=== PATIENT | female | born 1950 | race Caucasian/White ===

== ENCOUNTER 2018-07-14 13:03 | Emergency (ER) | payer MEDICARE, OTHER ==
[~2018-07-14] VITALS: Ht 170.2 cm; Wt 79.4 kg
[~2018-07-14 13:03] MED LIST: ACETAMINOPHEN500 MG PO; ACYC200 PO; ACYC400 PO; AMOX500 PO; AMOX875 PO; ATEN100; CEPH500 PO; CIPR500 PO; CIPRSO; CODGUAEL PO; CYCL10 PO; Ciloxan5 ML LEFTEYE; Ciprodex Otic7.5 ML LEFTEAR; DULO30 PO; DULO60 PO; ESTRADIOL; FAMC500; GABA300 PO; HYDACE5 PO; HYDMOR2 PO; HYDPAM25 PO; IBUP800 PO; LEVFLO250 PO; LOSA50 PO; LOSARTAN POTAS100 MG PO; LOSARTAN POTASS50 MG PO; METH40; METH40 PO; METO10 PO; METO100ER PO; METO50ER PO; MULVITMINE PO; MUPI2TO TOP; NAPR500 PO; NAPR550 PO; NEOPOLHCSU OT; NITR100CA PO; Norco 10-325 T1 EACH PO; OMEP20ER; OMEP20ER PO; OXYC5; OXYC5 PO; PRED5; PROC10 PO; PROM25 PO; Phenergan25 M1 PO; RIBA200 PO; RXLORA1 PO; RXNAPNA550 PO; SOVALDI400 MG PO; SULTRIDS PO; TACR1; TACR1 PO; TACROLIMUS0.5 MG PO; TACROLIMUS1 MG PO; TRAM50 PO; TRIAOI; Verotin-Gr Cap1 EACH PO; Vistaril25 MG PO; [UNRECOGNIZED DRUG - REMARK]
[2018-07-14 14:52] LABS: BASOPHILS ABSOLUTE AUTO 0.04 K/mm3 (0.00-0.23); BASOPHILS PERCENT AUTO 1 % (0-2); EOSINOPHILS ABSOLUTE AUTO 0.15 K/mm3 (0.00-0.68); EOSINOPHILS PERCENT AUTO 2 % (0-6); Hematocrit 44.8 % (33.0-51.0); Hemoglobin 14.8 g/dL (11.5-16.0); IMMATURE GRAN ABSOLUTE AUTO 0.03 K/mm3 (0.00-0.10); IMMATURE GRAN PERCENT AUTO 0 % (0-1); LYMPHOCYTES PERCENT AUTO 25 % (21-46); MONOCYTES ABSOLUTE AUTO 0.72 K/mm3 (0.16-1.47); MONOCYTES PERCENT AUTO 9 % (4-13); Mean Corpuscular HGB 28.2 pg (26.0-34.0); Mean Corpuscular Volume 86 fL (80-100); Mean Platelet Volume 10.7 fL (9.1-12.4); NEUTROPHILS ABSOLUTE AUTO 5.27 K/mm3 (1.96-9.15); NEUTROPHILS PERCENT AUTO 63 % (41-73); Platelet Count 244 K/mm3 (150-400); RDW Coefficient Variation 12.5 % (11.7-14.2); RDW Standard Deviation 38.9 fL (35.1-46.3); Red Blood Cell Count 5.24 M/mm3 (3.80-5.20); White Blood Cell Count 8.31 K/mm3 (4.00-11.30)
[2018-07-14 15:11] LABS: Albumin, Blood 3.5 g/dL (3.4-5.0); Albumin/Globulin Ratio 0.8 (0.8-1.8); Bilirubin, Total 0.7 mg/dL (0.1-1.0); Bun/Creatinine Ratio 14.8 (12.0-20.0); Calcium, Blood 9.1 mg/dL (8.5-10.1); Creatinine, Blood 1.69 mg/dL (0.40-1.00); Globulin, Blood 4.6 g/dL (2.2-4.0); Potassium, Blood 3.8 mmol/L (3.5-5.5); Total Protein, Blood 8.1 g/dL (6.4-8.2)
[2018-07-14] MEDS ORDERED: ACYC400 PO (15:11)
[2018-07-14 18:17] LABS: Source, Urine Clean Catch
[2018-07-14 18:23] LABS: Appearance, Urine Clear (Clear); Bilirubin, Urine Neg (Neg); Blood, Urine Neg (Neg); Color, Urine Yellow (P-Yellow); Glucose Qualitative, Urine Neg (Neg); Ketones, Urine 1+ (Neg); Leukocyte Esterase, Urine 1+ (Neg); Nitrite, Urine Neg (Neg); Protein, Urine 1+ (Neg); Urobilinogen, Urine NORM (Normal)
[2018-07-14 18:42] LABS: Bacteria Rare /hpf; Red Blood Cells, Urine Not Seen /hpf (0-2); Squamous Epithelial Cells Mod /hpf (Few)
== END 2018-07-14 20:06 | disposition home or self-care (01) ==
LOC: ER 13:03
PROVIDERS: Physician Assistant
DX: I12.9 Hypertensive chronic kidney disease with stage 1 through stage 4 chronic kidney disease, or unspecified chronic kidney disease (principal); E11.22 Type 2 diabetes mellitus with diabetic chronic kidney disease; N18.9 Chronic kidney disease, unspecified; N17.9 Acute kidney failure, unspecified; Z88.8 Allergy status to other drugs, medicaments and biological substances; Z91.018 Allergy to other foods; Z88.1 Allergy status to other antibiotic agents; Z79.899 Other long term (current) drug therapy; Z87.891 Personal history of nicotine dependence
CPT/HCPCS: 36415; 71046; 74176; 80053; 81001; 83690; 85025; 93005; 93010; 96361; 96374; 96376; 99284-25; J3010; J7030

== ENCOUNTER 2018-11-17 12:49 | Emergency (ER) | payer MEDICARE ==
[~2018-11-17] VITALS: Ht 170.2 cm; Wt 79.4 kg
== END 2018-11-17 13:57 | disposition home or self-care (01) ==
LOC: ER 12:49
DX: H60.91 Unspecified otitis externa, right ear (principal); Z88.8 Allergy status to other drugs, medicaments and biological substances; Z88.1 Allergy status to other antibiotic agents; Z79.899 Other long term (current) drug therapy; I12.9 Hypertensive chronic kidney disease with stage 1 through stage 4 chronic kidney disease, or unspecified chronic kidney disease; E11.22 Type 2 diabetes mellitus with diabetic chronic kidney disease; N18.9 Chronic kidney disease, unspecified; Z87.891 Personal history of nicotine dependence
CPT/HCPCS: 99282

== ENCOUNTER 2019-03-09 23:14 | Emergency (ER) | payer MEDICARE ==
[~2019-03-09] VITALS: Ht 170.2 cm; Wt 77.1 kg
[2019-03-10] MEDS ORDERED: BENADRYL25 MG PO (00:32)
[2019-03-10] MEDS ORDERED: ERYT1OIN RIGHTEYE (00:52)
[2019-03-10] MEDS ORDERED: Cleocin HCl300 MG PO (00:52)
== END 2019-03-10 01:25 | disposition home or self-care (01) ==
LOC: ER 23:14
DX: H04.301 Unspecified dacryocystitis of right lacrimal passage (principal); Z88.8 Allergy status to other drugs, medicaments and biological substances; Z88.1 Allergy status to other antibiotic agents; Z79.899 Other long term (current) drug therapy; I12.9 Hypertensive chronic kidney disease with stage 1 through stage 4 chronic kidney disease, or unspecified chronic kidney disease; E11.22 Type 2 diabetes mellitus with diabetic chronic kidney disease; N18.9 Chronic kidney disease, unspecified; Z87.891 Personal history of nicotine dependence
CPT/HCPCS: 99283

== ENCOUNTER 2020-04-08 12:38 | Emergency (ER) | payer MEDICARE ==
[~2020-04-08] VITALS: Ht 170.2 cm; Wt 77.1 kg
[~2020-04-08 12:38] MED LIST changes: +BENADRYL25 MG PO; +Cleocin HCl300 MG PO; +ERYT1OIN RIGHTEYE
[2020-04-08] MEDS ORDERED: NEOPOLHCSU RIGHTEAR (13:25)
== END 2020-04-08 13:36 | disposition home or self-care (01) ==
LOC: ER 12:38
DX: H60.91 Unspecified otitis externa, right ear (principal); I12.9 Hypertensive chronic kidney disease with stage 1 through stage 4 chronic kidney disease, or unspecified chronic kidney disease; E11.22 Type 2 diabetes mellitus with diabetic chronic kidney disease; N18.9 Chronic kidney disease, unspecified; Z87.891 Personal history of nicotine dependence; Z79.899 Other long term (current) drug therapy
CPT/HCPCS: 99282

== ENCOUNTER 2024-09-25 19:22 | Inpatient (IN) | payer MEDICARE, OTHER ==
[~2024-09-25] VITALS: Ht 170.2 cm; Wt 73.3 kg
[~2024-09-25 19:22] MED LIST changes: +DIPH50 PO; +FAMO20 PO; +GABA100 PO; +GLIP2.5ER; +MORPHINE SULFAT15 M1 PO; +MULTIPLE VITAM1 EACH PO; +NEOPOLHCSU RIGHTEAR; +Propofol 10mg/ml 20 ml Vial (Procedural) IV ONE; +Ropinirole HCl0.5 MG PO; +ZYRTEC10 M1 PO
[2024-09-25 19:55] LABS: BASOPHILS ABSOLUTE AUTO 0.02 K/mm3 (0.00-0.23); BASOPHILS PERCENT AUTO 0 % (0-2); EOSINOPHILS ABSOLUTE AUTO 0.06 K/mm3 (0.00-0.68); EOSINOPHILS PERCENT AUTO 1 % (0-6); Hematocrit 37.8 % (33.0-51.0); Hemoglobin 12.8 g/dL (11.5-16.0); IMMATURE GRAN ABSOLUTE AUTO 0.01 K/mm3 (0.00-0.10); IMMATURE GRAN PERCENT AUTO 0 % (0-1); LYMPHOCYTES ABSOLUTE AUTO 0.43 K/mm3 (0.84-5.20); LYMPHOCYTES PERCENT AUTO 8 % (21-46); MONOCYTES ABSOLUTE AUTO 0.08 K/mm3 (0.16-1.47); MONOCYTES PERCENT AUTO 1 % (4-13); Mean Corpuscular HGB 27.6 pg (26.0-34.0); Mean Corpuscular HGB Conc 33.9 g/dL (31.5-36.5); Mean Corpuscular Volume 82 fL (80-100); Mean Platelet Volume 9.5 fL (9.1-12.4); NEUTROPHILS ABSOLUTE AUTO 4.99 K/mm3 (1.96-9.15); NEUTROPHILS PERCENT AUTO 89 % (41-73); Platelet Count 201 K/mm3 (150-400); RDW Coefficient Variation 12.6 % (11.7-14.2); RDW Standard Deviation 37.4 fL (35.1-46.3); Red Blood Cell Count 4.64 M/mm3 (3.80-5.20); White Blood Cell Count 5.59 K/mm3 (4.00-11.30)
[2024-09-25 20:05] LABS: Source, Urine Clean Catch
[2024-09-25 20:08] LABS: Appearance, Urine Clear (Clear); Bilirubin, Urine Neg (Neg); Blood, Urine Neg (Neg); Color, Urine Yellow (P-Yellow); Glucose Qualitative, Urine Neg (Neg); Ketones, Urine Neg (Neg); Leukocyte Esterase, Urine 1+ (Neg); Nitrite, Urine Neg (Neg); Protein, Urine Neg (Neg); Urobilinogen, Urine NORM (Normal)
[2024-09-25 20:16] LABS: Bacteria Few /hpf; Red Blood Cells, Urine 0-2 /hpf (0-2); Squamous Epithelial Cells Few /hpf (Few)
[2024-09-25 20:16] LABS: Albumin, Blood 3.3 g/dL (3.4-5.0); Albumin/Globulin Ratio 0.9 (0.8-1.8); Bilirubin, Total 0.5 mg/dL (0.1-1.0); Bun/Creatinine Ratio 19.5 (12.0-20.0); Calcium, Blood 8.7 mg/dL (8.5-10.1); Creatinine, Blood 1.23 mg/dL (0.40-1.00); Globulin, Blood 3.7 g/dL (2.2-4.0); Potassium, Blood 4.8 mmol/L (3.5-5.5)
[2024-09-25 20:30] LABS: Influenza A, PCR NEGATIVE (NEGATIVE); Influenza B, PCR NEGATIVE (NEGATIVE); Resp Syncytial Virus, PCR NEGATIVE (NEGATIVE); SARS-Cov-2 (COVID-19) PCR, MMC NEGATIVE (NEGATIVE)
[2024-09-25 21:39] LABS: U Amphetamine Screen Not Detected; U Barbituate Screen Not Detected; U Benzodiazapine Screen Not Detected; U Buprenorphine Screen Not Detected; U Cannabinoids Screen Not Detected; U Cocaine Screen Not Detected; U Methadone Screen Not Detected; U Methamphetamine Screen Not Detected; U Opiates Screen DETECTED; U Oxycodone Screen Not Detected; U Phencyclidine Screen Not Detected
[2024-09-25] MEDS ORDERED: FLU VACC TS2024-25(6MOS UP)/PF 45 MCG/0.5 ML SYRINGE IM ONE (22:35)
[2024-09-25] MEDS ORDERED: Metoclopramide HCl 5MG / ML 2ML Vial IV ONE (23:50)
[2024-09-26] VITALS (34 sets, daily range): BP systolic 85–121; BP diastolic 43–72
[2024-09-26] MEDS ORDERED: Lactated Ringer's 1,000 ML IV ONE (00:46)
[2024-09-26] MEDS ORDERED: Lactated Ringer's 500 ML IV ONE ×4 (00:50→06:15)
[2024-09-26] MEDS ORDERED: NS 1,000 ML IV SCH (01:44)
[2024-09-26] MEDS ORDERED: Lactated Ringer's 1,000 ML IV SCH (02:00)
[2024-09-26] MEDS ORDERED: NS 1,000 ML IV ONE (02:42)
[2024-09-26] MEDS ORDERED: CefTRIAXone Sodium 1,000 MG in NS 100 ML IV SCH (05:04)
[2024-09-26 07:04] LABS: BASOPHILS ABSOLUTE AUTO 0.02 K/mm3 (0.00-0.23); BASOPHILS PERCENT AUTO 0 % (0-2); EOSINOPHILS ABSOLUTE AUTO 0.06 K/mm3 (0.00-0.68); EOSINOPHILS PERCENT AUTO 1 % (0-6); Hematocrit 31.4 % (33.0-51.0); Hemoglobin 10.7 g/dL (11.5-16.0); IMMATURE GRAN ABSOLUTE AUTO 0.04 K/mm3 (0.00-0.10); IMMATURE GRAN PERCENT AUTO 0 % (0-1); LYMPHOCYTES ABSOLUTE AUTO 0.76 K/mm3 (0.84-5.20); LYMPHOCYTES PERCENT AUTO 7 % (21-46); MONOCYTES ABSOLUTE AUTO 0.82 K/mm3 (0.16-1.47); MONOCYTES PERCENT AUTO 7 % (4-13); Mean Corpuscular HGB 28.2 pg (26.0-34.0); Mean Corpuscular HGB Conc 34.1 g/dL (31.5-36.5); Mean Corpuscular Volume 83 fL (80-100); Mean Platelet Volume 9.9 fL (9.1-12.4); NEUTROPHILS ABSOLUTE AUTO 9.76 K/mm3 (1.96-9.15); NEUTROPHILS PERCENT AUTO 85 % (41-73); Platelet Count 182 K/mm3 (150-400); RDW Coefficient Variation 12.8 % (11.7-14.2); RDW Standard Deviation 38.5 fL (35.1-46.3); White Blood Cell Count 11.46 K/mm3 (4.00-11.30)
[2024-09-26] MEDS ORDERED: Insulin Human Lispro 100 Units/ML 3ML Syringe SC SCH (07:30)
[2024-09-26 07:44] LABS: Bun/Creatinine Ratio 16.6 (12.0-20.0); Creatinine, Blood 1.57 mg/dL (0.40-1.00)
[2024-09-26] MEDS ORDERED: Morphine Sulfate IR 15 MG Tab PO PRN (08:25)
[2024-09-26] MEDS ORDERED: Lactobacil 2-S.Thermo-Bifido 1 1 Cap PO SCH (09:00)
[2024-09-26] MEDS ORDERED: Vancomycin HCL 1,750 MG in NS 500 ML IV ONE (13:20)
--- NOTE | 2024-09-26 20:01 | NUR ---
ASSUMPTION OF CARE: PT ALERT AND ORIENTED X4. ANSWERS ASSESSMENT QUESTION APPROPRIATELY, USES CALL LIGHT APPROPRIATELY. PT HR 90S. SBP IN 100S. MAPS >65. DENIES CHEST PAIN OR SOB. LUNGS CLEAR T/O. PT ON RA, SATS 99%. TEMP 99.0, STATES SHE FEELS WARM. HELPED PT GET SOME BLANKETS OFF OF HER. PT EATING PUDDING SNACK. STATES SHE ATE LUNCH TODAY AND TOLERATED IT WELL. HELPED PT TO BEDSIDE TOILET DURING ASSESSMENT. VOIDED ABOUT 200ML, YELLOW URINE. SHE IS ABLE TO MOVE AROUND ROOM INDEPENDENTLY. REPORTS CHRONIC BACK PAIN TO BE AT A 6 OUT OF 10. STATES SHE NORMALLY SITS AT A 5/10 AND FEELS IT'S BEEN MANAGED WELL DURING HER STAY. REPOSITIONING HELPS SHE IS NOT USED TO LYING FOR SO LONG. PLAN TO TRANSFER PT TO MEDICAL FLOOR THIS SHIFT. THIS RN TO CONTINUE TO MONITOR AND REPORT TO MED FLOOR RN.
--- NOTE | 2024-09-26 21:49 | NUR ---
PT TRANSPORTED VIA WC TO MEDICAL FLOOR BY IVANNA TRUCK HEADLIGHT ASSEMBLER. THIS RN REPORTED TO [facility] LOBSTER CATCHER PRIOR TO PTS DEPARTURE.
--- NOTE | 2024-09-26 22:00 | NUR ---
REPORT RECEIVED FROM DAWIT ALVARES. PT TRANSFERRED FROM ICU TO 358. TOA: 2150 VIA W/C. SBA TRANSFER TO BED. VSS. PT A&O X4. NO ACUTE DISTRESS. NS INFUSING AT 125ML / HR PER EMAR ORDER. PT ORIENTED TO ROOM AND CALL SYSTEM. BED IN LOWEST POSTION. CARES CONTINUE ORDERED.
[2024-09-27] VITALS (11 sets, daily range): BP systolic 93–156; BP diastolic 47–82
[2024-09-27 00:15] LABS: U Amphetamine Screen Not Detected; U Barbituate Screen Not Detected; U Benzodiazapine Screen Not Detected; U Buprenorphine Screen Not Detected; U Cannabinoids Screen Not Detected; U Cocaine Screen Not Detected; U Methadone Screen Not Detected; U Methamphetamine Screen Not Detected; U Opiates Screen DETECTED; U Oxycodone Screen Not Detected; U Phencyclidine Screen Not Detected
--- NOTE | 2024-09-27 05:00 | NUR ---
SHIFT SUMMARY: PT A&O X4, MAKES NEEDS KNOWN TO STAFF. USES CALL LIGHT APPROPRIATELY. MEDICATED X1 PER EMAR ORDERS FOR BACK AND NECK PAIN; EFFECTIVE. NS INFUSING AT 125ML /HR PER ORDER. PT OBSERVED BY THIS NURSE AMBULATING TO RESTROOM AND MANAGING LINES WITHOUT C/O WEAKNESS OR OBSERVED DIFFICULTY. NO ACUTE EVENTS. BED IN LOWEST POSITION. CALL LIGHT IN REACH. CARES CONTINUE ORDERED.
[2024-09-27 06:47] LABS: BASOPHILS ABSOLUTE AUTO 0.01 K/mm3 (0.00-0.23); BASOPHILS PERCENT AUTO 0 % (0-2); EOSINOPHILS ABSOLUTE AUTO 0.13 K/mm3 (0.00-0.68); EOSINOPHILS PERCENT AUTO 2 % (0-6); Hematocrit 28.2 % (33.0-51.0); Hemoglobin 9.5 g/dL (11.5-16.0); IMMATURE GRAN ABSOLUTE AUTO 0.03 K/mm3 (0.00-0.10); IMMATURE GRAN PERCENT AUTO 1 % (0-1); LYMPHOCYTES ABSOLUTE AUTO 0.86 K/mm3 (0.84-5.20); LYMPHOCYTES PERCENT AUTO 16 % (21-46); MONOCYTES ABSOLUTE AUTO 0.47 K/mm3 (0.16-1.47); MONOCYTES PERCENT AUTO 9 % (4-13); Mean Corpuscular HGB 27.9 pg (26.0-34.0); Mean Corpuscular HGB Conc 33.7 g/dL (31.5-36.5); Mean Corpuscular Volume 83 fL (80-100); Mean Platelet Volume 10.1 fL (9.1-12.4); NEUTROPHILS ABSOLUTE AUTO 3.83 K/mm3 (1.96-9.15); NEUTROPHILS PERCENT AUTO 72 % (41-73); Platelet Count 139 K/mm3 (150-400); RDW Standard Deviation 39.3 fL (35.1-46.3); White Blood Cell Count 5.33 K/mm3 (4.00-11.30)
[2024-09-27 06:59] LABS: Anion Gap 10 mmol/L (3-11); Blood Urea Nitrogen 16 mg/dL (8-24); Bun/Creatinine Ratio 13.2 (12.0-20.0); CO2, Blood 23 mmol/L (21-32); Calcium, Blood 7.7 mg/dL (8.5-10.1); Chloride, Blood 110 mmol/L (98-108); Creatinine, Blood 1.21 mg/dL (0.40-1.00); Glomerular Filtration Rate 47 (60-); Glucose, Blood 122 mg/dL (70-99); Potassium, Blood 4.3 mmol/L (3.5-5.5); Sodium, Blood 139 mmol/L (136-145); Vancomycin, Random 16.3 ug/mL
[2024-09-27] MEDS ORDERED: Acetaminophen 325 MG TABLET PO PRN (07:40)
[2024-09-27] MEDS ORDERED: Ondansetron HCl 2 MG / ML 2ML Vial IV PRN (08:45)
[2024-09-27] MEDS ORDERED: Vancomycin HCL 1,250 MG in NS 250 ML IV SCH (09:00)
[2024-09-27] MEDS ORDERED: NS 1,000 ML IV ONE (09:30)
[2024-09-27] MEDS ORDERED: Benzocaine Oral Spray 0.5ML UD ONE (09:31)
--- NOTE | 2024-09-27 10:00 | NUR ---
[facility]. Anesthesia to bedside. Consents signed.
--- NOTE | 2024-09-27 10:30 | NUR ---
1010 time out performed 1011 meds given by anesthesia 1012 Probe time 1026 End ELSIE time 1029 Anesthesia end time, Pt sleeping wakes up to verbal stimuli. VSS. Spontaneous RR. 1031 Pt awake and walking. VSS. 350cc fluids given.
--- NOTE | 2024-09-27 10:50 | NUR ---
Pt fully recovered. Pt transfers to wheelchair. tele in place. pt taken back to 358 and report given to nurse.
[2024-09-27] MEDS ORDERED: Cefepime HCl 2,000 MG in NS 100 ML IV SCH (11:00)
[2024-09-27] MEDS ORDERED: CefTRIAXone Sodium 2,000 MG in NS 100 ML IV SCH (11:00)
--- NOTE | 2024-09-27 12:02 | NUR ---
"Spiritual Care Visit | Pt. Request Pt. is awake in bed and welcomed my visit. Pt. is very pleasant, and verbalized her great masoud in the midst of her current affliction. Facilitated a review of the roots of this masoud. Pt. shared some tragedy in her families past and how God faithfully cared for them over time. Considered matters of masoud and her local mu-ism in [place]. Pt. displays evidence of a deep personal connection with God. Prayed with the Pt. Pt. verbalized gratitude of rthe psiritual care visit and welcomed this radio host to return."
--- NOTE | 2024-09-27 12:50 | NUR ---
9560- THIS RN CALLED PT'S LUMBER MOVER AT [facility]-DR. PFEIFFER ON THE PROVIDER TO PROVIDER LINE AT . THIS RN GAVE THE REQUESTED PT INFORMATION AND ASKED A QUESTION REGARDING WHEN/IF TO RESTART [facility]CROLIM[facility]. THIS RN GAVE DR. EVANS'S PHONE NUMBER FOR A CALL BACK FOR MD TO MD COMMUNICATION. RN CALLED DR. EVANS TO UPDATE HER AND MD ASKED TO CALL BACK RN.
--- NOTE | 2024-09-27 19:28 | NUR ---
SUMMARY- PT AAOX4. CALM AND COOPERATIVE. PAIN WELL CONTROLLED WITH EMAR PAIN MEDS. IND IN ROOM/HALLS. ON RA. NO ACUTE EVENTS THIS SHIFT.
[2024-09-27] MEDS ORDERED: Enoxaparin 40 MG/0.4 ML SYR SC SCH (20:00)
[2024-09-28 00:32] VITALS: BP 123/65
[2024-09-28 04:51] VITALS: BP 128/68
[2024-09-28 05:43] LABS: BASOPHILS ABSOLUTE AUTO 0.02 K/mm3 (0.00-0.23); BASOPHILS PERCENT AUTO 1 % (0-2); EOSINOPHILS ABSOLUTE AUTO 0.17 K/mm3 (0.00-0.68); EOSINOPHILS PERCENT AUTO 4 % (0-6); Hematocrit 27.7 % (33.0-51.0); Hemoglobin 9.5 g/dL (11.5-16.0); IMMATURE GRAN ABSOLUTE AUTO 0.02 K/mm3 (0.00-0.10); IMMATURE GRAN PERCENT AUTO 1 % (0-1); LYMPHOCYTES ABSOLUTE AUTO 0.72 K/mm3 (0.84-5.20); LYMPHOCYTES PERCENT AUTO 18 % (21-46); MONOCYTES ABSOLUTE AUTO 0.36 K/mm3 (0.16-1.47); MONOCYTES PERCENT AUTO 9 % (4-13); Mean Corpuscular HGB 28.4 pg (26.0-34.0); Mean Corpuscular HGB Conc 34.3 g/dL (31.5-36.5); Mean Corpuscular Volume 83 fL (80-100); Mean Platelet Volume 10.2 fL (9.1-12.4); NEUTROPHILS ABSOLUTE AUTO 2.69 K/mm3 (1.96-9.15); NEUTROPHILS PERCENT AUTO 68 % (41-73); Platelet Count 139 K/mm3 (150-400); RDW Standard Deviation 39.2 fL (35.1-46.3); Red Blood Cell Count 3.35 M/mm3 (3.80-5.20); White Blood Cell Count 3.98 K/mm3 (4.00-11.30)
--- NOTE | 2024-09-28 06:09 | NUR ---
SHIFT SUMMARY PATIENT HAS BEEN SLEEPING INTERMITTANTLY THROUGHOUT THE NIGHT. SHE HAS BEEN MEDICATED X2 ON THIS SHIFT FOR PAIN WITH PO MORPHINE. SHE IS COMPLAINING OF BACK PAIN. VITAL SIGNS HAVE BEEN STABLE. PATIENT IS ORIENTED X4. SHE HAS HER CALL LIGHT WITHIN REACH. SAFETY PRECAUTIONS ARE BEING MAINTAINED.
[2024-09-28 06:11] LABS: Bun/Creatinine Ratio 12.2 (12.0-20.0); Calcium, Blood 7.8 mg/dL (8.5-10.1); Creatinine, Blood 1.15 mg/dL (0.40-1.00); Potassium, Blood 4.4 mmol/L (3.5-5.5)
[2024-09-28 07:28] VITALS: BP 124/73
[2024-09-28] MEDS ORDERED: Docusate Sodium 100 MG Cap PO SCH (09:00)
[2024-09-28 11:38] VITALS: BP 140/79
[2024-09-28] MEDS ORDERED: Melatonin 5 MG Tablet PO PRN (12:20)
--- NOTE | 2024-09-28 14:43 | NUR ---
PHYSICIAN CONTACT DR. JOHN NOTIFIED THAT PT HAS MRI SCHEDULED FOR 1500 AND IS CLAUSTERPHOBIC. STATED HE WILL PLACE AN ORDER TO HELP WITH THIS.
[2024-09-28 14:45] LABS: Albumin, Blood 2.8 g/dL (3.4-5.0); Albumin/Globulin Ratio 0.8 (0.8-1.8); Bilirubin, Direct 0.2 mg/dL (0.0-0.3); Bilirubin, Indirect 0.2 mg/dL (0.1-0.7); Bilirubin, Total 0.4 mg/dL (0.1-1.0); Globulin, Blood 3.6 g/dL (2.2-4.0); Total Protein, Blood 6.4 g/dL (6.4-8.2)
[2024-09-28] MEDS ORDERED: LORazepam 2 MG/ML 1ML Injection IV PRN (14:45)
--- NOTE | 2024-09-28 15:17 | NUR ---
Pt. is awake in bed and welcomed my visit. Pt. verbalized that she was going to be taken for and MRI soon, so I prayed with Pt. The Pts. wheelchair for he MRI arrived. Pt. verbalized gratitude for the spiritual care visit.
[2024-09-28 16:03] VITALS: BP 130/63
--- NOTE | 2024-09-28 18:07 | NUR ---
SUMMARY- AAOX4. ON RA. IND IN ROOM. PAIN WELL CONTROLLED WITH EMAR MEDS. NO ACUTE EVENTS THIS SHIFT.
[2024-09-28] MEDS ORDERED: Enoxaparin 40 MG/0.4 ML SYR SC SCH (19:00)
[2024-09-28] MEDS ORDERED: NS 250 ML IV PRN (19:45)
[2024-09-28 20:05] VITALS: BP 140/71
[2024-09-28] MEDS ORDERED: CefTRIAXone Sodium 2,000 MG in NS 100 ML IV SCH (21:00)
[2024-09-29 00:06] VITALS: BP 120/61
--- NOTE | 2024-09-29 04:17 | NUR ---
SHIFT SUMMARY PATIENT HAD NO ACUTE CHANGES. ALERT ORIENTED AND INDEPENDENT IN ROOM. DENIES CHEST PAIN, SOB, AND N/V. VSS/AFEBRILE. TELE MONITOR NSR 72. CBG 102. POWERGLIDE RU ARM INTACT. IV ABX INFUSED. MELATONIN 5 MG GIVEN FOR INSOMNIA. CALL LIGHT IN REACH. BED IN LOWEST POSITION. WILL CONTINUE TO MONITOR UNTIL DAY SHIFT NURSE ASSUMES CARE.
[2024-09-29 04:23] VITALS: BP 129/72
--- NOTE | 2024-09-29 04:41 | NUR ---
TELE MONITOR REPORTS 3 SECOND 2ND DEGREE HB AND BACK TO NSR 65. PATIENT ASYMPTOMATIC RESTING IN BED. DENIES CHEST PAIN. WCTM.
[2024-09-29 04:59] LABS: BASOPHILS ABSOLUTE AUTO 0.02 K/mm3 (0.00-0.23); BASOPHILS PERCENT AUTO 1 % (0-2); EOSINOPHILS ABSOLUTE AUTO 0.21 K/mm3 (0.00-0.68); EOSINOPHILS PERCENT AUTO 7 % (0-6); Hematocrit 28.5 % (33.0-51.0); Hemoglobin 9.7 g/dL (11.5-16.0); IMMATURE GRAN ABSOLUTE AUTO 0.02 K/mm3 (0.00-0.10); IMMATURE GRAN PERCENT AUTO 1 % (0-1); LYMPHOCYTES ABSOLUTE AUTO 0.88 K/mm3 (0.84-5.20); LYMPHOCYTES PERCENT AUTO 28 % (21-46); MONOCYTES ABSOLUTE AUTO 0.32 K/mm3 (0.16-1.47); MONOCYTES PERCENT AUTO 10 % (4-13); Mean Corpuscular HGB 27.9 pg (26.0-34.0); Mean Corpuscular Volume 82 fL (80-100); Mean Platelet Volume 10.4 fL (9.1-12.4); NEUTROPHILS ABSOLUTE AUTO 1.74 K/mm3 (1.96-9.15); NEUTROPHILS PERCENT AUTO 55 % (41-73); Platelet Count 158 K/mm3 (150-400); RDW Coefficient Variation 12.9 % (11.7-14.2); RDW Standard Deviation 38.5 fL (35.1-46.3); Red Blood Cell Count 3.48 M/mm3 (3.80-5.20); White Blood Cell Count 3.19 K/mm3 (4.00-11.30)
[2024-09-29 05:23] LABS: Albumin, Blood 2.4 g/dL (3.4-5.0); Albumin/Globulin Ratio 0.7 (0.8-1.8); Bilirubin, Total 0.2 mg/dL (0.1-1.0); Bun/Creatinine Ratio 10.7 (12.0-20.0); Calcium, Blood 8.2 mg/dL (8.5-10.1); Creatinine, Blood 1.12 mg/dL (0.40-1.00); Globulin, Blood 3.3 g/dL (2.2-4.0); Total Protein, Blood 5.7 g/dL (6.4-8.2)
[2024-09-29 07:42] VITALS: BP 123/67
[2024-09-29 11:56] VITALS: BP 132/74
[2024-09-29 16:39] VITALS: BP 147/87
--- NOTE | 2024-09-29 18:18 | NUR ---
SHIFT SUMMARY ANDRE HAD 1 EPISODE OF 2ND DEGREE BLOCK FOR 2 BEATS AND RETURNED TO SINUS 80S, DR JOYCE NOTIFIED THIS AFTERNOON OF EVENT, PATIENT ASYMPTOMATIC. SHE IS MEDICATED FOR PAIN PER EMAR WITH GOOD RELIEF. AFTER THIS, PATIENT TOOK A NAP AND THEN IS UP WALKING HALLS WITH GUILLE MARCUS. SHE DENIES ANY ISSUES AT THIS TIME.BED IN LOW POSITION, CALL LIGHT IN REACH. SHE IS ABLE TO MAKE NEEDS KNOWN. WILL CONTINUE TO MONITOR.
[2024-09-29 19:30] VITALS: BP 140/73
[2024-09-30 00:17] VITALS: BP 125/66
--- NOTE | 2024-09-30 04:05 | NUR ---
SHIFT SUMMARY PATIENT NAUSEOUS X ONE AND IV ZOFRAN GIVEN WITH GOOD EFFECT. AXOX 4 AND INDEPENDENT. DENIES CHEST PAIN AND SOB. VSS/AFEBRILE. POWERGLIDE RU ARM INTACT. TELE MONITOR NSR 75. CALL LIGHT IN REACH. BED IN LOWEST POSITION. WILL CONTINUE TO MONITOR UNTIL DAY SHIFT NURSE ASSUMES CARE.
[2024-09-30 05:23] VITALS: BP 123/62
[2024-09-30 05:48] LABS: BASOPHILS ABSOLUTE AUTO 0.03 K/mm3 (0.00-0.23); BASOPHILS PERCENT AUTO 1 % (0-2); EOSINOPHILS ABSOLUTE AUTO 0.21 K/mm3 (0.00-0.68); EOSINOPHILS PERCENT AUTO 5 % (0-6); Hematocrit 28.2 % (33.0-51.0); Hemoglobin 9.6 g/dL (11.5-16.0); IMMATURE GRAN ABSOLUTE AUTO 0.04 K/mm3 (0.00-0.10); IMMATURE GRAN PERCENT AUTO 1 % (0-1); LYMPHOCYTES ABSOLUTE AUTO 1.07 K/mm3 (0.84-5.20); LYMPHOCYTES PERCENT AUTO 28 % (21-46); MONOCYTES ABSOLUTE AUTO 0.44 K/mm3 (0.16-1.47); MONOCYTES PERCENT AUTO 11 % (4-13); Mean Corpuscular HGB 28.1 pg (26.0-34.0); Mean Corpuscular Volume 83 fL (80-100); Mean Platelet Volume 10.7 fL (9.1-12.4); NEUTROPHILS ABSOLUTE AUTO 2.08 K/mm3 (1.96-9.15); NEUTROPHILS PERCENT AUTO 54 % (41-73); Platelet Count 188 K/mm3 (150-400); RDW Coefficient Variation 12.9 % (11.7-14.2); Red Blood Cell Count 3.42 M/mm3 (3.80-5.20); White Blood Cell Count 3.87 K/mm3 (4.00-11.30)
[2024-09-30 06:14] LABS: Bun/Creatinine Ratio 9.2 (12.0-20.0); Calcium, Blood 8.4 mg/dL (8.5-10.1); Creatinine, Blood 1.09 mg/dL (0.40-1.00); Potassium, Blood 3.9 mmol/L (3.5-5.5)
[2024-09-30 07:08] VITALS: BP 136/72
[2024-09-30 15:03] VITALS: BP 135/75
[2024-09-30] MEDS ORDERED: VISBIOME 112.51 EACH PO (16:35)
[2024-09-30] MEDS ORDERED: CEFP200 PO (16:35)
== END 2024-09-30 17:12 | disposition home or self-care (01) | DRG 872 ==
LOC: ER 19:22 → ICUE 22:46 → ERHOLD 22:46 → ICUE 09-26 03:27 → MEDS 09-26 21:46
PROVIDERS: Emergency Medicine; Student in an Organized Health Care Education/Training Program; ADMIT Student in an Organized Health Care Education/Training Program
PROC: 3E03329 Introduction of Other Anti-infective into Peripheral Vein, Percutaneous Approach (ICD-10-PCS; principal; 2024-09-26)
PROC: 3E033XZ Introduction of Vasopressor into Peripheral Vein, Percutaneous Approach (ICD-10-PCS; 2024-09-26)
DX: A41.51 Sepsis due to Escherichia coli [E. coli] (principal); Z94.4 Liver transplant status; K83.09 Other cholangitis; N17.9 Acute kidney failure, unspecified; I13.0 Hypertensive heart and chronic kidney disease with heart failure and stage 1 through stage 4 chronic kidney disease, or unspecified chronic kidney disease; F11.20 Opioid dependence, uncomplicated; E87.21 Acute metabolic acidosis; D84.821 Immunodeficiency due to drugs; Z66 Do not resuscitate; R65.20 Severe sepsis without septic shock; B96.89 Other specified bacterial agents as the cause of diseases classified elsewhere; E11.22 Type 2 diabetes mellitus with diabetic chronic kidney disease; I50.9 Heart failure, unspecified; N18.31 Chronic kidney disease, stage 3a; K74.60 Unspecified cirrhosis of liver; E78.5 Hyperlipidemia, unspecified; Z88.8 Allergy status to other drugs, medicaments and biological substances; Z91.014 Allergy to mammalian meats; Z79.899 Other long term (current) drug therapy; Z79.4 Long term (current) use of insulin; Z90.49 Acquired absence of other specified parts of digestive tract; Z90.89 Acquired absence of other organs; Z98.890 Other specified postprocedural states; B19.20 Unspecified viral hepatitis C without hepatic coma; I44.1 Atrioventricular block, second degree; Z86.19 Personal history of other infectious and parasitic diseases
CPT/HCPCS: 0241U; 36415; 71045; 74177; 74181; 78802; 80048; 80053; 80076; 80202; 81001; 82947; 83605; 85025; 87040; 87077; 87086; 87184; 87186; 93306; 93312; 93325; 96361; 96375; 97110; 97161; 97530; 99285-25; A9270; A9569; C1751; G0378; J0692; J0696; J1650; J2060; J2405; J2704; J2765; J3370; J7030; J7040; J7050; J7060; J7120; Q9967

== ENCOUNTER 2024-10-03 11:12 | Emergency (ER) | payer MEDICARE, OTHER ==
[~2024-10-03] VITALS: Ht 170.2 cm; Wt 75.3 kg
[~2024-10-03 11:12] MED LIST changes: +CEFP200 PO; -Propofol 10mg/ml 20 ml Vial (Procedural) IV ONE; +VISBIOME 112.51 EACH PO
[2024-10-03 11:13] VITALS: BP 161/87
[2024-10-03 11:49] LABS: BASOPHILS ABSOLUTE AUTO 0.05 K/mm3 (0.00-0.23); BASOPHILS PERCENT AUTO 1 % (0-2); EOSINOPHILS PERCENT AUTO 3 % (0-6); Hematocrit 34.3 % (33.0-51.0); Hemoglobin 11.7 g/dL (11.5-16.0); IMMATURE GRAN ABSOLUTE AUTO 0.07 K/mm3 (0.00-0.10); IMMATURE GRAN PERCENT AUTO 1 % (0-1); LYMPHOCYTES ABSOLUTE AUTO 1.76 K/mm3 (0.84-5.20); LYMPHOCYTES PERCENT AUTO 26 % (21-46); MONOCYTES ABSOLUTE AUTO 0.56 K/mm3 (0.16-1.47); MONOCYTES PERCENT AUTO 8 % (4-13); Mean Corpuscular HGB 27.8 pg (26.0-34.0); Mean Corpuscular HGB Conc 34.1 g/dL (31.5-36.5); Mean Corpuscular Volume 82 fL (80-100); Mean Platelet Volume 10.1 fL (9.1-12.4); NEUTROPHILS ABSOLUTE AUTO 4.07 K/mm3 (1.96-9.15); NEUTROPHILS PERCENT AUTO 61 % (41-73); Platelet Count 282 K/mm3 (150-400); RDW Coefficient Variation 13.4 % (11.7-14.2); RDW Standard Deviation 38.2 fL (35.1-46.3); Red Blood Cell Count 4.21 M/mm3 (3.80-5.20); White Blood Cell Count 6.71 K/mm3 (4.00-11.30)
[2024-10-03 12:09] LABS: Albumin, Blood 3.1 g/dL (3.4-5.0); Albumin/Globulin Ratio 0.8 (0.8-1.8); Bilirubin, Total 0.5 mg/dL (0.1-1.0); Calcium, Blood 8.9 mg/dL (8.5-10.1); Creatinine, Blood 0.92 mg/dL (0.40-1.00); Globulin, Blood 3.8 g/dL (2.2-4.0); Potassium, Blood 4.3 mmol/L (3.5-5.5); Total Protein, Blood 6.9 g/dL (6.4-8.2)
== END 2024-10-03 13:02 | disposition home or self-care (01) ==
LOC: ER 11:12
PROVIDERS: Emergency Medicine
DX: R10.9 Unspecified abdominal pain (principal); I13.0 Hypertensive heart and chronic kidney disease with heart failure and stage 1 through stage 4 chronic kidney disease, or unspecified chronic kidney disease; E11.22 Type 2 diabetes mellitus with diabetic chronic kidney disease; N18.9 Chronic kidney disease, unspecified; I50.9 Heart failure, unspecified; Z94.4 Liver transplant status; Z88.1 Allergy status to other antibiotic agents; Z88.8 Allergy status to other drugs, medicaments and biological substances; Z79.899 Other long term (current) drug therapy
CPT/HCPCS: 74176; 80053; 83690; 85025; 93005; 93010; 99284-25

== ENCOUNTER 2024-12-17 01:37 | Inpatient (IN) | payer MEDICARE, OTHER ==
[~2024-12-17] VITALS: Ht 170.2 cm; Wt 75.4 kg
[2024-12-17] MEDS ORDERED: NS IV ONE (02:10)
[2024-12-17] MEDS ORDERED: VANCOMYCIN HCL IV ONE (02:10)
[2024-12-17] MEDS ORDERED: CefTRIAXone Sodium 2,000 MG in NS 100 ML IV ONE (02:10)
[2024-12-17] MEDS ORDERED: NS 1,000 ML IV SCH ×4 (02:15→09:55)
[2024-12-17] MEDS ORDERED: Acetaminophen 500 MG Tab PO ONE (02:15)
[2024-12-17 02:16] LABS: BASOPHILS ABSOLUTE AUTO 0.01 K/mm3 (0.00-0.23); BASOPHILS PERCENT AUTO 0 % (0-2); EOSINOPHILS ABSOLUTE AUTO 0.06 K/mm3 (0.00-0.68); EOSINOPHILS PERCENT AUTO 1 % (0-6); Hemoglobin 11.2 g/dL (11.5-16.0); IMMATURE GRAN ABSOLUTE AUTO 0.01 K/mm3 (0.00-0.10); IMMATURE GRAN PERCENT AUTO 0 % (0-1); LYMPHOCYTES ABSOLUTE AUTO 0.33 K/mm3 (0.84-5.20); LYMPHOCYTES PERCENT AUTO 7 % (21-46); MONOCYTES ABSOLUTE AUTO 0.15 K/mm3 (0.16-1.47); MONOCYTES PERCENT AUTO 3 % (4-13); Mean Corpuscular HGB 27.7 pg (26.0-34.0); Mean Corpuscular HGB Conc 33.9 g/dL (31.5-36.5); Mean Corpuscular Volume 82 fL (80-100); Mean Platelet Volume 10.3 fL (9.1-12.4); NEUTROPHILS ABSOLUTE AUTO 4.12 K/mm3 (1.96-9.15); NEUTROPHILS PERCENT AUTO 88 % (41-73); Platelet Count 162 K/mm3 (150-400); RDW Coefficient Variation 12.6 % (11.7-14.2); RDW Standard Deviation 37.2 fL (35.1-46.3); Red Blood Cell Count 4.05 M/mm3 (3.80-5.20); White Blood Cell Count 4.68 K/mm3 (4.00-11.30)
[2024-12-17] MEDS ORDERED: Vancomycin HCL 1,500 MG in NS 250 ML IV ONE (02:25)
[2024-12-17 02:33] LABS: Albumin, Blood 2.7 g/dL (3.4-5.0); Albumin/Globulin Ratio 0.8 (0.8-1.8); Bilirubin, Direct 0.3 mg/dL (0.0-0.3); Bilirubin, Indirect 0.5 mg/dL (0.1-0.7); Bilirubin, Total 0.8 mg/dL (0.1-1.0); Bun/Creatinine Ratio 12.9 (12.0-20.0); Calcium, Blood 7.8 mg/dL (8.5-10.1); Creatinine, Blood 1.16 mg/dL (0.40-1.00); Globulin, Blood 3.5 g/dL (2.2-4.0); Magnesium, Blood 1.3 mg/dL (1.6-2.4); Phosphorus, Blood 2.1 mg/dL (2.5-4.9); Potassium, Blood 3.3 mmol/L (3.5-5.5); Total Protein, Blood 6.2 g/dL (6.4-8.2)
[2024-12-17] MEDS ORDERED: Morphine Sulfate 4 MG/1 ML Injection IV ONE ×2 (02:35→06:05)
[2024-12-17 03:01] LABS: International Normalized Ratio 1.1
[2024-12-17 03:31] LABS: Source, Urine Clean Catch
[2024-12-17 03:34] LABS: Bilirubin, Urine Neg (Neg); Blood, Urine 1+ (Neg); Glucose Qualitative, Urine Neg (Neg); Ketones, Urine Neg (Neg); Leukocyte Esterase, Urine 2+ (Neg); Nitrite, Urine Neg (Neg); Protein, Urine 2+ (Neg); Urobilinogen, Urine 1+ (Normal)
[2024-12-17 03:42] LABS: Appearance, Urine Hazy (Clear); Color, Urine Yellow (P-Yellow)
[2024-12-17 03:43] LABS: Amorphous Mod (0-Heavy); Bacteria Few /hpf; Mucus Light (0-Heavy); Red Blood Cells, Urine 0-2 /hpf (0-2); Squamous Epithelial Cells Few /hpf (Few)
[2024-12-17] MEDS ORDERED: Piperacillin/Tazobactam Sod 4.5 GM in NS 100 ML IV ONE (04:15)
[2024-12-17] MEDS ORDERED: NS 500 ML IV ONE (08:25)
[2024-12-17] MEDS ORDERED: FentaNYL Citrate 50 MCG/ML 2 ML Injection IV ONE (08:25)
[2024-12-17] MEDS ORDERED: Mag Sulfate 1 GM/D5% 100ML 100 ML IV SCH (09:00)
[2024-12-17] MEDS ORDERED: Potassium Chloride 20 MEQ/15 ML UDC PO ONE (09:00)
[2024-12-17] MEDS ORDERED: Magnesium Hydroxide Conc 10 ML UDC PO PRN (09:55)
[2024-12-17] MEDS ORDERED: Ondansetron 4 MG TAB PO PRN (09:55)
[2024-12-17] MEDS ORDERED: TraZODone HCl 50 MG Tab PO PRN (09:55)
[2024-12-17] MEDS ORDERED: Bisacodyl 10 MG Supp PR PRN (10:00)
[2024-12-17] MEDS ORDERED: Tacrolimus 1 MG Cap PO SCH (10:36)
[2024-12-17 11:57] VITALS: BP 108/54
[2024-12-17] MEDS ORDERED: Piperacillin/Tazobactam Sod 4.5 GM in NS 100 ML IV SCH (12:00)
[2024-12-17] MEDS ORDERED: LOSARTAN POTAS100 M1 PO (12:04)
[2024-12-17] MEDS ORDERED: FLUT.05NI (12:05)
--- NOTE | 2024-12-17 12:58 | NUR ---
ADMIT TO PCU: ADMIT TO PCU 17 AT 1150. PATIENT ALERT AND ORIENTED X4. DENIES N/T. PERRLA. OVERALL WEAK, USED SLIDE SHEET TO TRANSFER. COMPLAINS OF 7/10 PAIN THAT STARTS IN RIGHT FLANK AND EXTENDS TO RLQ. MEDICATED PER EMAR. TELE SHOWING SR WITH HR 60-70'S. SBP 100'S. NO EDEMA NOTED. DENIES CHEST PAIN/PRESSURE/PALPIATIONS. IV FLUIDS AND IV ABX INFUSING PER EMAR. PPP. ON ROOM AIR, LUNG SOUNDS CLEAR. DENIES SOB/COUGH. EVEN AND UNLABORED RESPIRATIONS. BOWEL TONES PRESENT THROUGHOUT ALL FOUR QUADRANTS. PATIENT STATES SHE FEELS THAT HER ABDOMIN IS DISTENDED AND BLOATED. UP TO BSC, PATIENT VOIDED 400ML OF LIZETTE COLORED URINE AND HAD ONE SMALL FORMED BOWEL MOVEMENT. TOLERATING CLEAR LIQUID DIET. SKIN C/D/I. ORIENTED TO UNIT/CALL LIGHT. PATIENT STATES HER DAUGHTER WILL BE COMING LATER TODAY AND DENIES THE NEED FOR THIS RN TO CONTACT ANY FAMILY OR FRIENDS. DNR BAND PLACED TO LEFT WRIST. CALL LIGHT IN REACH. DENIES NEEDS AT THIS TIME.
[2024-12-17] MEDS ORDERED: Vancomycin HCL 500 MG in NS 250 ML IV ONE (13:00)
[2024-12-17] MEDS ORDERED: Morphine Sulfate IR 15 MG Tab PO SCH (14:00)
[2024-12-17 15:03] VITALS: BP 116/70
[2024-12-17] MEDS ORDERED: Insulin Human Lispro 100 Units/ML 3ML Syringe SC SCH (16:30)
--- NOTE | 2024-12-17 17:23 | NUR ---
SHIFT SUMMARY: NO ACUTE CHANGES. REMAINS ALERT AND ORIENTED. VITAL SIGNS STABLE. TELE SHOWING SR WITH HR 60'S. DENIES CHEST PAIN/PRESSURE. ON ROOM AIR. IMPROVED RLQ/RIGHT FLANK PAIN. UP TO BATHROOM TO VOID. PHYSICAL THERAPY IN THIS AFTERNOON AND PATIENT UP WALKING HALLS. FAMILY AT BEDSIDE AND UPDATED ON PLAN OF CARE. IV FLUIDS CONTINUE TO INFUSE PER EMAR. DIET ADVANCED AND PATIENT TOLERATING WELL. CALL LIGHT IN REACH. DENIES NEEDS AT THIS TIME.
[2024-12-17 20:00] VITALS: BP 127/63
[2024-12-17] MEDS ORDERED: Lactobacil 2-S.Thermo-Bifido 1 1 Cap PO SCH (21:00)
[2024-12-17] MEDS ORDERED: Famotidine 20 MG Tab PO SCH (21:00)
[2024-12-17] MEDS ORDERED: Vancomycin HCL 1,250 MG in NS 250 ML IV SCH (23:00)
[2024-12-18] VITALS (7 sets, daily range): BP systolic 107–127; BP diastolic 58–88
[2024-12-18] MEDS ORDERED: Melatonin 5 MG Tablet PO SCH (01:25)
[2024-12-18 04:18] LABS: BASOPHILS ABSOLUTE AUTO 0.02 K/mm3 (0.00-0.23); BASOPHILS PERCENT AUTO 0 % (0-2); EOSINOPHILS ABSOLUTE AUTO 0.14 K/mm3 (0.00-0.68); EOSINOPHILS PERCENT AUTO 3 % (0-6); Hematocrit 29.5 % (33.0-51.0); Hemoglobin 9.5 g/dL (11.5-16.0); IMMATURE GRAN ABSOLUTE AUTO 0.02 K/mm3 (0.00-0.10); IMMATURE GRAN PERCENT AUTO 0 % (0-1); LYMPHOCYTES ABSOLUTE AUTO 0.85 K/mm3 (0.84-5.20); LYMPHOCYTES PERCENT AUTO 19 % (21-46); MONOCYTES ABSOLUTE AUTO 0.43 K/mm3 (0.16-1.47); MONOCYTES PERCENT AUTO 9 % (4-13); Mean Corpuscular HGB Conc 32.2 g/dL (31.5-36.5); Mean Corpuscular Volume 84 fL (80-100); Mean Platelet Volume 10.5 fL (9.1-12.4); NEUTROPHILS PERCENT AUTO 68 % (41-73); Platelet Count 107 K/mm3 (150-400); RDW Coefficient Variation 13.2 % (11.7-14.2); RDW Standard Deviation 39.8 fL (35.1-46.3); Red Blood Cell Count 3.52 M/mm3 (3.80-5.20); White Blood Cell Count 4.56 K/mm3 (4.00-11.30)
[2024-12-18 04:38] LABS: Albumin, Blood 2.1 g/dL (3.4-5.0); Albumin/Globulin Ratio 0.7 (0.8-1.8); Bilirubin, Total 0.4 mg/dL (0.1-1.0); Bun/Creatinine Ratio 13.7 (12.0-20.0); Creatinine, Blood 1.24 mg/dL (0.40-1.00); Globulin, Blood 3.1 g/dL (2.2-4.0); Magnesium, Blood 1.9 mg/dL (1.6-2.4); Potassium, Blood 4.1 mmol/L (3.5-5.5); Total Protein, Blood 5.2 g/dL (6.4-8.2)
[2024-12-18] MEDS ORDERED: Morphine Sulfate IR 15 MG Tab PO SCH (05:55)
[2024-12-18] MEDS ORDERED: Enoxaparin 40 MG/0.4 ML SYR SC SCH (09:00)
--- NOTE | 2024-12-18 09:46 | NUR ---
AM NOTE: PATIENT ALERT AND ORIENTED. DENIES PAIN THIS AM, RECENTLY RECIEVED PAIN MEDICATION BY NOC SHIFT. STATES WHEN SHE IS HAVING PAIN IT IS RELATED TO HER ARTHRITIS AND RIGHT FLANK/RLQ PAIN. TELE SHOWING SR WITH HR 70'S. DENIES CHEST PAIN/PRESSURE/PALPITATIONS. NO EDEMA NOTED. IV MAG INFUSED THIS AM. ON ROOM AIR, LUNG SOUNDS CLEAR AND DIM IN BASES. EVEN AND UNLABORED RESPIRATIONS. DENIES COUGH/SOB. BOWEL TONES PRESENT THROUGHOUT ABDOMIN. TOLERATING PO DIET. DENIES NAUSEA. INTERMIT RLQ/RIGHT FLANK PAIN. UP TO THE BATHROOM WITH SBA. ATTENDS IN PLACE. PATIENT DENIES ISSUES WITH VOIDING. SKIN C/D/I. DR. MG TO BEDSIDE, NO NEW ORDERS FOR THIS RN TO PLACE. CALL LIGHT IN REACH. PATIENT IN BED AT THIS TIME, DENIES NEEDS.
--- NOTE | 2024-12-18 17:38 | NUR ---
SHIFT SUMMARY: PATIENT REMAINS ALERT AND ORIENTED. INTERMIT PAIN, MEDICATED PER EMAR. UP TO RECLINER THIS AFTERNOON, VISITING WITH DAUGHTER. TELE SHOWING SR THROUGOUT SHIFT WITH HR 60-80'S. DENIES CHEST PAIN/PRESSURE/PALPITATIONS. ON ROOM AIR. UP TO BATHROOM WITH SBA. PATIENT ABLE TO WALK HALLS WITH THIS RN. IV ABX INFUSED. ACHS BLOOD SUGAR CHECKS. PATIENT EATING DINNER AT THIS TIME. CALL LIGHT IN REACH.
[2024-12-19] VITALS: BP 130/98
[2024-12-19 04:00] VITALS: BP 156/74
[2024-12-19 04:46] LABS: Hematocrit 30.3 % (33.0-51.0); Mean Corpuscular HGB 27.3 pg (26.0-34.0); Mean Corpuscular Volume 83 fL (80-100); Mean Platelet Volume 10.8 fL (9.1-12.4); Platelet Count 141 K/mm3 (150-400); RDW Coefficient Variation 13.2 % (11.7-14.2); RDW Standard Deviation 39.8 fL (35.1-46.3); Red Blood Cell Count 3.66 M/mm3 (3.80-5.20); White Blood Cell Count 4.13 K/mm3 (4.00-11.30)
[2024-12-19 05:15] LABS: Albumin, Blood 2.3 g/dL (3.4-5.0); Albumin/Globulin Ratio 0.7 (0.8-1.8); Bilirubin, Total 0.4 mg/dL (0.1-1.0); Bun/Creatinine Ratio 10.1 (12.0-20.0); Creatinine, Blood 1.19 mg/dL (0.40-1.00); Globulin, Blood 3.4 g/dL (2.2-4.0); Magnesium, Blood 1.9 mg/dL (1.6-2.4); Potassium, Blood 4.2 mmol/L (3.5-5.5); Total Protein, Blood 5.7 g/dL (6.4-8.2)
--- NOTE | 2024-12-19 05:17 | NUR ---
SHIFT SUMMARY PT HAS TOLERATED NIGHT WELL WITH NO SIGNIFICANT CHANGES IN STATUS. PT STATES THAT SHE FEELS MUCH BETTER RIGHT NOW AND HOPES THAT SHE WILL BE ABLE TO GO HOME SOON. PTs VITALS HAVE REMAINED STABLE THROUGH EVENING. PT APPEARS TO BE RESTING COMFORTABLY IN ROOM AT THIS TIME. WILL CONTINUE TO MONITOR UNTIL REPORT PASSED TO DAY SHIFT TEAM.
[2024-12-19 07:54] VITALS: BP 136/71
--- NOTE | 2024-12-19 10:24 | NUR ---
AM NOTE: PATIENT ALERT AND ORIENTED X4. UP WALKING ROOM AND HALLS WITH SBA FOR SAFETY. DENIES N/T. INTERMIT ABDOMINAL PAIN. MRI COMPLETED THIS AM, RESULTS PENDING. TELE SHOWING SR WITH HR 60-70'S. DENIES CHEST PAIN/PRESSURE/PALPITATIONS. ON ROOM AIR. EATING WELL, ACHS BLOOD SUGAR CHECKS. IV MAG INFUSED PER EMAR. DR. MG TO BEDSIDE, NO NEW ORDERS FOR THIS RN TO PLACE. CALL LIGHT IN REACH, DENIES NEEDS.
[2024-12-19] MEDS ORDERED: Amoxicillin500 MG PO (11:38)
[2024-12-19] MEDS ORDERED: AMOCLA500 PO (11:38)
[2024-12-19 11:57] VITALS: BP 152/61
--- NOTE | 2024-12-19 13:19 | NUR ---
DISCHARGE this rn removed the iv from the right forearm and iv tip in place. patient has friend whom is the ride. patient has personal belongings gathered and with her when leaving. patient is in no distress when leaving. patient has dsicharge packet and information with her when leaving.
== END 2024-12-19 13:38 | disposition home health service (06) | DRG 872 ==
LOC: ER 01:37 → PCU 09:58 → ERHOLD 09:58 → PCU 11:43
PROVIDERS: Student in an Organized Health Care Education/Training Program; ADMIT Hospitalist
DX: A41.9 Sepsis, unspecified organism (principal); I13.0 Hypertensive heart and chronic kidney disease with heart failure and stage 1 through stage 4 chronic kidney disease, or unspecified chronic kidney disease; Z94.4 Liver transplant status; M31.0 Hypersensitivity angiitis; K83.09 Other cholangitis; K83.8 Other specified diseases of biliary tract; Z66 Do not resuscitate; E11.22 Type 2 diabetes mellitus with diabetic chronic kidney disease; I50.9 Heart failure, unspecified; N18.31 Chronic kidney disease, stage 3a; D63.1 Anemia in chronic kidney disease; E87.6 Hypokalemia; E83.51 Hypocalcemia; E83.42 Hypomagnesemia; B00.1 Herpesviral vesicular dermatitis; B96.20 Unspecified Escherichia coli [E. coli] as the cause of diseases classified elsewhere; E83.39 Other disorders of phosphorus metabolism; Z88.8 Allergy status to other drugs, medicaments and biological substances; Z87.891 Personal history of nicotine dependence; Z90.89 Acquired absence of other organs; Z90.49 Acquired absence of other specified parts of digestive tract; Z90.710 Acquired absence of both cervix and uterus; Z98.890 Other specified postprocedural states; Z88.1 Allergy status to other antibiotic agents; Z79.899 Other long term (current) drug therapy; Z79.891 Long term (current) use of opiate analgesic; Z79.620 Long term (current) use of immunosuppressive biologic
CPT/HCPCS: 36415; 71046; 74177; 74181; 80053; 81001; 82248; 82947; 83036; 83605; 83735; 84100; 85025; 85027; 85610; 85730; 87040; 87077; 87086; 87186; 93005; 93010; 94762; 96361; 96365-59; 96367; 96375; 96376; 97116; 97161; 99285-25; A9270; J0696; J1650; J2270; J2543; J3010; J3370; J3475; J7030; J7050; J7507; Q9967

== ENCOUNTER 2025-02-11 19:59 | Inpatient (IN) | payer MEDICARE, OTHER ==
[~2025-02-11] VITALS: Ht 170.2 cm; Wt 73.3 kg
[~2025-02-11 19:59] MED LIST changes: +AMOCLA500 PO; +Amoxicillin500 MG PO; +FLUT.05NI; +LOSARTAN POTAS100 M1 PO
[2025-02-11] MEDS ORDERED: NS 1,000 ML IV SCH (20:25)
[2025-02-11 20:43] LABS: Hematocrit 36.7 % (33.0-51.0); Hemoglobin 12.1 g/dL (11.5-16.0); Mean Corpuscular HGB Conc 33.0 g/dL (31.5-36.5); Mean Corpuscular Volume 82 fL (80-100); NRBC ABSOLUTE 0.00 K/mm3 (0.00-0.02); NRBC Auto 0.0 /100 WBC (0.0-0.2); Platelet Count 193 K/mm3 (150-400); RDW Coefficient Variation 13.1 % (11.7-14.2); RDW Standard Deviation 38.7 fL (35.1-46.3)
[2025-02-11 21:01] LABS: Alanine Aminotransfer (ALT/SGP 48.0 U/L (12-78); Albumin, Blood 3.0 g/dL (3.4-5.0); Albumin/Globulin Ratio 0.7 (0.8-1.8); Anion Gap 11.0 mmol/L (3-11); Aspartate Aminotrans (AST/SGOT 75.0 U/L (12-37); Bilirubin, Total 0.9 mg/dL (0.1-1.0); Blood Urea Nitrogen 21.0 mg/dL (8-24); CO2, Blood 21.0 mmol/L (21-32); Calcium, Blood 8.2 mg/dL (8.5-10.1); Chloride, Blood 107.0 mmol/L (98-108); Creatinine, Blood 1.13 mg/dL (0.40-1.00); Globulin, Blood 4.2 g/dL (2.2-4.0); Glucose, Blood 143.0 mg/dL (70-99); Potassium, Blood 4.0 mmol/L (3.5-5.5); Sodium, Blood 135.0 mmol/L (136-145); Total Protein, Blood 7.2 g/dL (6.4-8.2)
[2025-02-11] MEDS ORDERED: Morphine Sulfate 20 MG/1ML 1 ML Oral Syringe PO ONE (21:15)
[2025-02-11 21:35] LABS: BAND PERCENT MAN 19 % (0-8); BASOPHILS ABSOLUTE MAN 0.00 K/mm3 (0.00-0.23); BASOPHILS PERCENT MAN 0 % (0-2); EOSINOPHILS ABSOLUTE MAN 0.02 K/mm3 (0.00-0.68); EOSINOPHILS PERCENT MAN 1 % (0-6); LYMPHOCYTES ABSOLUTE MAN 0.22 K/mm3 (0.84-5.20); LYMPHOCYTES PERCENT MAN 8 % (21-46); MONOCYTES ABSOLUTE MAN 0.02 K/mm3 (0.16-1.47); MONOCYTES PERCENT MAN 1 % (4-13); NEUTROPHILS ABSOLUTE MAN 2.47 K/mm3 (1.96-9.15); SEG NEUTROPHILS PERCENT MAN 71 % (41-73)
[2025-02-11 22:06] LABS: Source, Urine Clean Catch
[2025-02-11 22:12] LABS: Bilirubin, Urine Neg (Neg); Glucose Qualitative, Urine Neg (Neg); Ketones, Urine Neg (Neg); Leukocyte Esterase, Urine Neg (Neg); Protein, Urine 1+ (Neg); Specific Gravity, Urine 1.010 (1.003-1.022); Urobilinogen, Urine 2+ (Normal)
[2025-02-11 22:18] LABS: Color, Urine Yellow (P-Yellow)
[2025-02-11] MEDS ORDERED: CefTRIAXone Sodium 2,000 MG in NS 100 ML IV ONE (22:35)
[2025-02-11] MEDS ORDERED: Vancomycin (Pharmacy Consult) IV PRN (23:45)
[2025-02-12] VITALS (28 sets, daily range): BP systolic 93–132; BP diastolic 43–74
[2025-02-12] MEDS ORDERED: Piperacillin/Tazobactam Sod 4.5 GM in NS 100 ML IV SCH ×2 (02:27→10:00)
[2025-02-12] MEDS ORDERED: Morphine Sulfate 4 MG/1 ML Injection IV PRN (02:35)
[2025-02-12] MEDS ORDERED: NS 1,000 ML IV SCH (03:00)
[2025-02-12] MEDS ORDERED: Ondansetron HCl 2 MG / ML 2ML Vial IV PRN (03:08)
[2025-02-12 06:49] LABS: BASOPHILS ABSOLUTE AUTO 0.03 K/mm3 (0.00-0.23); BASOPHILS PERCENT AUTO 0 % (0-2); EOSINOPHILS ABSOLUTE AUTO 0.03 K/mm3 (0.00-0.68); EOSINOPHILS PERCENT AUTO 0 % (0-6); Hematocrit 34.4 % (33.0-51.0); Hemoglobin 11.5 g/dL (11.5-16.0); IMMATURE GRAN ABSOLUTE AUTO 0.07 K/mm3 (0.00-0.10); IMMATURE GRAN PERCENT AUTO 1 % (0-1); LYMPHOCYTES ABSOLUTE AUTO 0.60 K/mm3 (0.84-5.20); LYMPHOCYTES PERCENT AUTO 6 % (21-46); MONOCYTES ABSOLUTE AUTO 0.79 K/mm3 (0.16-1.47); MONOCYTES PERCENT AUTO 8 % (4-13); Mean Corpuscular HGB Conc 33.4 g/dL (31.5-36.5); Mean Corpuscular Volume 80 fL (80-100); NEUTROPHILS ABSOLUTE AUTO 8.22 K/mm3 (1.96-9.15); NEUTROPHILS PERCENT AUTO 84 % (41-73); NRBC ABSOLUTE 0.00 K/mm3 (0.00-0.02); NRBC Auto 0.0 /100 WBC (0.0-0.2); Platelet Count 180 K/mm3 (150-400); RDW Coefficient Variation 13.4 % (11.7-14.2); RDW Standard Deviation 38.5 fL (35.1-46.3)
[2025-02-12 07:05] LABS: Magnesium, Blood 1.4 mg/dL (1.6-2.4)
[2025-02-12 07:06] LABS: Alanine Aminotransfer (ALT/SGP 43.0 U/L (12-78); Albumin, Blood 2.3 g/dL (3.4-5.0); Albumin/Globulin Ratio 0.6 (0.8-1.8); Anion Gap 10.0 mmol/L (3-11); Aspartate Aminotrans (AST/SGOT 58.0 U/L (12-37); Bilirubin, Total 0.7 mg/dL (0.1-1.0); Blood Urea Nitrogen 19.0 mg/dL (8-24); CO2, Blood 20.0 mmol/L (21-32); Calcium, Blood 7.7 mg/dL (8.5-10.1); Chloride, Blood 110.0 mmol/L (98-108); Creatinine, Blood 1.11 mg/dL (0.40-1.00); Globulin, Blood 3.7 g/dL (2.2-4.0); Glucose, Blood 156.0 mg/dL (70-99); Potassium, Blood 4.6 mmol/L (3.5-5.5); Sodium, Blood 135.0 mmol/L (136-145); Total Protein, Blood 6.0 g/dL (6.4-8.2)
[2025-02-12 07:08] LABS: Prothrombin Time Results 12.2 Sec (9.7-11.5)
[2025-02-12] MEDS ORDERED: Magnesium Sul 4 GM/Water100 ML 100 ML IV ONE (08:05)
[2025-02-12] MEDS ORDERED: Heparin Sodium,Porcine 5,000 UNIT/0.5 ML SDV SC SCH (09:00)
[2025-02-12] MEDS ORDERED: Lactobacil 2-S.Thermo-Bifido 1 1 Cap PO SCH (09:00)
[2025-02-12] MEDS ORDERED: Metoclopramide HCl 5MG / ML 2ML Vial IV PRN (11:40)
--- NOTE | 2025-02-12 16:33 | NUR ---
SHIFT/TRANSFER NOTE: THIS RN ASSUMED CARE OF PT AT APPROX 0700, BEDSIDE REPORT COMPLETED. PT A/O X3-4, UNABLE TO RECALL YEAR. ABLE TO COMMUNICATE NEEDS & USE CALL LIGHT APPROPRIATELY. VSS. HR 60-80'S, SINUS RHYTHM ON MONITOR. SBP 90-130'S, MAP >65. LEVOPHED GTT OFF ALL SHIFT. PT DENIES CHEST PAIN/PRESSURE. SPO2 >90% ON ROOM AIR. AFEBRILE W/ ORAL TEMP. PW IN PLACE FOR URINARY URGENCY, LIZETTE URINE OUTPUT. NO BM'S THIS SHIFT. NPO. NS INFUSING AT 100 ML/HR. CENTRAL LINE TO RIJ REMOVED, PG TO GINA PLACED THIS SHIFT. C/O NAUSEA W/O VOMITING, MEDICATED PER EMAR. ABLE TO REPOSITION INDEPENDENTLY IN BED. PT IS PCU STATUS, TRANSFERRED TO PCU-14 W/ ALL BELONGINGS AT APPROX 1630. REPORT TO MATY PASTOR TO ASSUME CARE.
--- NOTE | 2025-02-12 17:18 | NUR ---
PATIENT TRANSFER TO PCU. USE SLIDE SHEET. PATIENT NAUSEAOUS AND HAVING 6/10 BACK AND RUQ PAIN. MEDICATED PER EMAR WITH SOME RELIEF. VITAL SIGNS STABLE WITH MAP ABOVE 65. AFEBRILE. TELE SHOWING SR WITH HR 70'S. SATING ABOVE 95% ON ROOM AIR. BOWEL TONES PRESENT. NPO AT THIS TIME. Q6 BLOOD SUGAR ORDERS, BLOOD SUGAR 104 ON TRANSFER TO PCU. PUREWICK IN PLACE AND CHANGED ON TRANSFER. BED BATH GIVEN. CALL PLACED TO DAUGHTER TO UPDATE ON TRANSFER, NO ANSWER AND UNABLE TO LEAVE MESSAGE. MED REC COMPLETED AND DR. MCCLELLAN/RESIDENT TEAM UPDATED. CALL LIGHT IN REACH. DENIES NEEDS AT THIS TIME.
--- NOTE | 2025-02-12 18:09 | NUR ---
SHIFT SUMMARY: PATIENT REMAINS ALERT AND ORIENTED. SEE PREVIOUS NOTES FOR UPDATES. CONFIRMED IMAGES PUSHED TO [facility] PER DR. MAYNARD. TELE SHOWING SR WITH HR 70'S. SATING ABOVE 95% ON ROOM AIR. NAUSEA AND PAIN IMPROVED AFTER ZOFRAN AND MORPHINE. NPO. RESTING IN BED AT THIS TIME AND DENIES NEEDS. CALL LIGHT IN REACH.
[2025-02-13 04:11] VITALS: BP 133/71
[2025-02-13 04:14] LABS: BASOPHILS ABSOLUTE AUTO 0.02 K/mm3 (0.00-0.23); BASOPHILS PERCENT AUTO 0 % (0-2); EOSINOPHILS ABSOLUTE AUTO 0.06 K/mm3 (0.00-0.68); EOSINOPHILS PERCENT AUTO 1 % (0-6); Hematocrit 30.1 % (33.0-51.0); Hemoglobin 10.2 g/dL (11.5-16.0); IMMATURE GRAN ABSOLUTE AUTO 0.09 K/mm3 (0.00-0.10); IMMATURE GRAN PERCENT AUTO 1 % (0-1); LYMPHOCYTES ABSOLUTE AUTO 0.94 K/mm3 (0.84-5.20); LYMPHOCYTES PERCENT AUTO 11 % (21-46); MONOCYTES ABSOLUTE AUTO 0.61 K/mm3 (0.16-1.47); MONOCYTES PERCENT AUTO 7 % (4-13); Mean Corpuscular HGB Conc 33.9 g/dL (31.5-36.5); Mean Corpuscular Volume 81 fL (80-100); NEUTROPHILS ABSOLUTE AUTO 6.53 K/mm3 (1.96-9.15); NEUTROPHILS PERCENT AUTO 79 % (41-73); NRBC ABSOLUTE 0.00 K/mm3 (0.00-0.02); NRBC Auto 0.0 /100 WBC (0.0-0.2); Platelet Count 158 K/mm3 (150-400); RDW Coefficient Variation 13.8 % (11.7-14.2); RDW Standard Deviation 40.2 fL (35.1-46.3)
[2025-02-13 04:38] LABS: Alanine Aminotransfer (ALT/SGP 30.0 U/L (12-78); Albumin, Blood 2.2 g/dL (3.4-5.0); Albumin/Globulin Ratio 0.6 (0.8-1.8); Anion Gap 10.0 mmol/L (3-11); Aspartate Aminotrans (AST/SGOT 33.0 U/L (12-37); Bilirubin, Total 0.5 mg/dL (0.1-1.0); Blood Urea Nitrogen 15.0 mg/dL (8-24); CO2, Blood 22.0 mmol/L (21-32); Calcium, Blood 7.6 mg/dL (8.5-10.1); Chloride, Blood 111.0 mmol/L (98-108); Creatinine, Blood 1.09 mg/dL (0.40-1.00); Globulin, Blood 3.4 g/dL (2.2-4.0); Glucose, Blood 104.0 mg/dL (70-99); Magnesium, Blood 2.1 mg/dL (1.6-2.4); Potassium, Blood 4.3 mmol/L (3.5-5.5); Sodium, Blood 139.0 mmol/L (136-145); Total Protein, Blood 5.6 g/dL (6.4-8.2)
--- NOTE | 2025-02-13 05:46 | NUR ---
SHIFT SUMMARY PT IS A&O X4, TO ABLE TO MAKE NEEDS KNOWN, MOVING ALL EXTREMITIES WITH PURPOSE, BEDREST AT THIS TIME, REPOSITIONING SELF IN BED. CONTINUOUS SPO2, SPO2 GREATER 90% ON RA, LUNGS SOUND CLEAR T/O, NO SIGNS OF RESPIRATORY DISTRESS. CONTINUOUS TELE MONITORING, SINUS 70-80 S, PULSES PRESENT T/O, PT DENEIS CHEST P/P T/O THIS SHIFT, BP STABLE WITH MAP GREATER THAN 65. BOWEL TONES PRESENT IN ALL 4Q, PT REPORTS NAUSE/MEDICATED PER ORDERS. PUREWICK IN PLACE CONNECTED TO LOW CONTINUOUS SUCTION, URINE LIZETTE IN COLOR. PT REPORTING PAIN IN HER BACK AND RUQ/ MEDICATED PER ORDERS AND HEATING PAD AT BEDSIDE. BED LOWEST POSITION, CALL LIGHT IN REACH, AWAITING TO GIVE REPORT TO ONCOMING RN.
[2025-02-13 07:41] VITALS: BP 133/75
--- NOTE | 2025-02-13 09:20 | NUR ---
AM NOTE: PATIENT ALERT AND ORIENTED X4. MOVING IND IN BED. COMPLAINS OF 7/10 PAIN THIS MORNING TO BACK AND RUQ. PERRLA, GLASSES. TELE SHOWING SR WITH HR 70-80'S. SBP 130'S. IV FLUIDS INFUSING PER EMAR. DENIES CHEST PAIN/PRESSURE. PPP. NO EDEMA NOTED. ON ROOM AIR SATING ABOVE 95%. LUNG SOUNDS CLEAR. DENIES SOB/COUGH. BOWEL TONES PRESENT. NPO. INTERMIT NAUSEA AND RUQ. SKIN C/D/I. DRESSING IN PLACE TO RIGHT IJ FROM PREVIOUS CENTRAL LINE. DR. MCCLELLAN AND DR. MAYNARD AT BEDSIDE THIS AM AND THIS RN PRESENT. NO NEW ORDERS. WAITING FOR TRANSFER TO [facility].
[2025-02-13 11:06] VITALS: BP 137/79
[2025-02-13 15:06] VITALS: BP 136/76
--- NOTE | 2025-02-13 16:56 | NUR ---
PALLIATIVE CARE VISIT: MET WITH PT TO DO GOC AND SYMPTOM MANAGEMENT. PT IS AWAITING TRANSFER TO [facility]. SHE WANTS TO BE TRANSFERRED AND IS AGREEABLE TO PROCEDURE. PT REPORTS HER NAUSEA, PAIN ARE MANAGED. PT STATES SHE IS FINALLY ABLE TO SLEEP IN COMFORT. DENIES SOB. EDUCATED PT ON HER ILLNESS AND POTENTIAL ERCP PROCEDURE REQUESTED. SPOKE TO DAUGHTER PAUL.
--- NOTE | 2025-02-13 17:55 | NUR ---
SHIFT SUMMARY: PATIENT REMAINS ALERT AND ORIENTED. INTERMIT NAUSEA AND PAIN, MEDICATED PER EMAR WITH SOME RELIEF. IV FLUIDS AND ABX INFUSING. VITAL SIGNS STABLE. SR WITH HR 70-80'S. ON ROOM AIR. CLEAR LIQUID DIET IN PLACE. PATIENT ABLE TO TOLERATE WATER AND APPLEJUICE. TURNING IND IN BED. PUREWICK IN PLACE. SLEEPING ON AND OFF. DAUGHTER BY AND UPDATED ON PLAN OF CARE. CALL LIGHT IN REACH. DENIES NEEDS AT THIS TIME.
[2025-02-13 19:45] VITALS: BP 137/73
[2025-02-14] VITALS (7 sets, daily range): BP systolic 133–162; BP diastolic 67–83
[2025-02-14 03:46] LABS: BASOPHILS ABSOLUTE AUTO 0.04 K/mm3 (0.00-0.23); BASOPHILS PERCENT AUTO 1 % (0-2); EOSINOPHILS ABSOLUTE AUTO 0.10 K/mm3 (0.00-0.68); EOSINOPHILS PERCENT AUTO 1 % (0-6); Hematocrit 30.1 % (33.0-51.0); Hemoglobin 9.9 g/dL (11.5-16.0); IMMATURE GRAN ABSOLUTE AUTO 0.08 K/mm3 (0.00-0.10); IMMATURE GRAN PERCENT AUTO 1 % (0-1); LYMPHOCYTES ABSOLUTE AUTO 1.08 K/mm3 (0.84-5.20); LYMPHOCYTES PERCENT AUTO 14 % (21-46); MONOCYTES ABSOLUTE AUTO 0.46 K/mm3 (0.16-1.47); MONOCYTES PERCENT AUTO 6 % (4-13); Mean Corpuscular HGB Conc 32.9 g/dL (31.5-36.5); Mean Corpuscular Volume 81 fL (80-100); NEUTROPHILS ABSOLUTE AUTO 5.79 K/mm3 (1.96-9.15); NEUTROPHILS PERCENT AUTO 77 % (41-73); NRBC ABSOLUTE 0.00 K/mm3 (0.00-0.02); NRBC Auto 0.0 /100 WBC (0.0-0.2); Platelet Count 164 K/mm3 (150-400); RDW Coefficient Variation 13.5 % (11.7-14.2); RDW Standard Deviation 39.3 fL (35.1-46.3)
[2025-02-14 04:10] LABS: Alanine Aminotransfer (ALT/SGP 23.0 U/L (12-78); Albumin, Blood 2.1 g/dL (3.4-5.0); Albumin/Globulin Ratio 0.6 (0.8-1.8); Anion Gap 9.0 mmol/L (3-11); Aspartate Aminotrans (AST/SGOT 22.0 U/L (12-37); Bilirubin, Total 0.4 mg/dL (0.1-1.0); Blood Urea Nitrogen 9.0 mg/dL (8-24); CO2, Blood 23.0 mmol/L (21-32); Calcium, Blood 7.6 mg/dL (8.5-10.1); Chloride, Blood 108.0 mmol/L (98-108); Creatinine, Blood 1.0 mg/dL (0.40-1.00); Globulin, Blood 3.6 g/dL (2.2-4.0); Glucose, Blood 133.0 mg/dL (70-99); Potassium, Blood 4.0 mmol/L (3.5-5.5); Sodium, Blood 136.0 mmol/L (136-145); Total Protein, Blood 5.7 g/dL (6.4-8.2)
--- NOTE | 2025-02-14 05:11 | NUR ---
SHIFT SUMMARY: PATIENT IS A&OX4. VITALS ARE STABLE AND IS ON ROOM AIR WITH >90% OXYGEN SATS. TELE MONITORING SHOWED SINUS RHYTHM WITH HEART RATE IN THE 80'S. PATIENT REPORTED 8/10 PAIN SCORE, WHICH HAS BEEN MANAGED WITH HER PRN PO MORPHINE PER SEP. Q6H CBG CHECKS PER ORDERS. PATIENT TOLERATED SMALL AMOUNTS OF PO CLEAR LIQUIDS. PUREWICK IN PLACE WITH YELLOW/FOAMED URINE OUTPUT. PATIENT DENIED NAUSEA OR VOMITING THROUGHOUT THIS SHIFT. PATIENT INDEPENDENTLY CHANGES POSITIONS IN BED. GINA BRIZUELA HAS CONTINUOUS NS FLUIDS RUNNING AT 100ML/H AND ALSO HAD IV ABX PER SEP DURING THE SHIFT WELL. [facility] CALLED FOR PATIENT UPDATE AT 0039 THIS MORNING, BUT STILL NO AVAILABLE BEDS AT THIS TIME. PATIENT CALLS APPROPRIATELY WITH CALL LIGHT IN REACH WHILE LAYING IN BED AT THIS TIME.
[2025-02-14] MEDS ORDERED: Metoclopramide HCl 5MG / ML 2ML Vial IV PRN (09:45)
[2025-02-14] MEDS ORDERED: Ondansetron HCl 2 MG / ML 2ML Vial IV PRN (09:45)
--- NOTE | 2025-02-14 16:20 | NUR ---
ASSUMPTION OF CARE: THIS RN TO ASSUME CARE OF PT FROM JESSICA Watts RN. PT A&OX4 FOLLOWS COMMANDS AND ANSWERS QUESTIONS APPROPRIATELY. DENIES ANY CP, PRESSURE, TIGHTNESS OR SOB. REPORTING NAUSEA AT THIS TIME. PT REPORTS HAVING A HARD TIME WITH PO INTAKE. DENIES ANY FURTHER NEEDS. AWAITING TRANSFER TO HIGHER LEVEL OF CARE. WILL CONTINUE TO CARE FOR PT TILL END OF SHIFT.
--- NOTE | 2025-02-14 20:00 | NUR ---
[facility] [place] @ APPROX 1950/ ASSUMPTION OF CARE @ APPROX 1899 REPORT GIVEN TO NAVEEN RN, JUSTINA, @ APPROX 1953 BY THIS RN. PT IS A&O X4, TO ABLE TO MAKE NEEDS KNOWN, MOVING ALL EXTREMITIES WITH PURPOSE, 1 PERSON SBA TO BSC, REPOSITIONING SELF IN BED. CONTINUOUS SPO2, SPO2 GREATER 90% ON RA, LUNGS SOUND CLEAR T/O, NO SIGNS OF RESPIRATORY DISTRESS. CONTINUOUS TELE MONITORING, SINUS 70-80 S, PULSES PRESENT T/O, PT DENEIS CHEST P/P T/O THIS SHIFT, BP STABLE WITH MAP GREATER THAN 65. BOWEL TONES PRESENT IN ALL 4Q, PT REPORTS NAUSE/MEDICATED PER ORDERS. PUREWICK IN PLACE CONNECTED TO LOW CONTINUOUS SUCTION, URINE PALE YELLOW IN COLOR. PT REPORTING PAIN IN HER BACK AND RUQ/ MEDICATED PER ORDERS.
== END 2025-02-14 19:51 | disposition short-term general hospital (02) | DRG 871 ==
LOC: ER 19:59 → PCU 02-12 02:17 → ICUE 02-12 02:17 → PCU 02-12 16:30
PROVIDERS: Student in an Organized Health Care Education/Training Program; ADMIT Student in an Organized Health Care Education/Training Program
PROC: 3E03329 Introduction of Other Anti-infective into Peripheral Vein, Percutaneous Approach (ICD-10-PCS; principal; 2025-02-11)
PROC: 3E043XZ Introduction of Vasopressor into Central Vein, Percutaneous Approach (ICD-10-PCS; 2025-02-11)
PROC: 05HM33Z Insertion of Infusion Device into Right Internal Jugular Vein, Percutaneous Approach (ICD-10-PCS; 2025-02-11)
DX: A41.51 Sepsis due to Escherichia coli [E. coli] (principal); K83.1 Obstruction of bile duct; R65.21 Severe sepsis with septic shock; Z94.4 Liver transplant status; I13.0 Hypertensive heart and chronic kidney disease with heart failure and stage 1 through stage 4 chronic kidney disease, or unspecified chronic kidney disease; E87.1 Hypo-osmolality and hyponatremia; K83.09 Other cholangitis; F11.20 Opioid dependence, uncomplicated; Z66 Do not resuscitate; N18.31 Chronic kidney disease, stage 3a; E83.42 Hypomagnesemia; E11.22 Type 2 diabetes mellitus with diabetic chronic kidney disease; I50.9 Heart failure, unspecified; R16.1 Splenomegaly, not elsewhere classified; K59.00 Constipation, unspecified; D72.819 Decreased white blood cell count, unspecified; R74.02 Elevation of levels of lactic acid dehydrogenase [LDH]; Z60.2 Problems related to living alone; Z79.621 Long term (current) use of calcineurin inhibitor; Z88.1 Allergy status to other antibiotic agents; Z88.8 Allergy status to other drugs, medicaments and biological substances; Z79.899 Other long term (current) drug therapy; Z87.891 Personal history of nicotine dependence; Z90.49 Acquired absence of other specified parts of digestive tract
CPT/HCPCS: 36415; 36556; 71045; 74177; 76705; 80053; 82947; 83605; 83690; 83735; 84484; 85025; 85610; 87040; 87077; 87186; 93005; 93010; 94762; 96365-59; 96366-59; 96367-59; 96375-59; 99285-25; A9270; C1751; J0696; J1644; J2270; J2405; J2543; J2765; J3373; J3475; J7030; J7040; J7120; J7507; Q9967

== ENCOUNTER 2025-03-18 07:55 | Emergency (ER) | payer MEDICARE, OTHER ==
[~2025-03-18] VITALS: Ht 170.2 cm; Wt 63.5 kg
[2025-03-18] MEDS ORDERED: Morphine Sulfate 4 MG/1 ML Injection IV ONE (08:05)
[2025-03-18] MEDS ORDERED: Ondansetron HCl 2 MG / ML 2ML Vial IV ONE (08:05)
[2025-03-18] MEDS ORDERED: NS 1,000 ML IV SCH (08:05)
[2025-03-18 08:24] LABS: BASOPHILS ABSOLUTE AUTO 0.07 K/mm3 (0.00-0.23); BASOPHILS PERCENT AUTO 1 % (0-2); EOSINOPHILS ABSOLUTE AUTO 0.22 K/mm3 (0.00-0.68); EOSINOPHILS PERCENT AUTO 3 % (0-6); Hematocrit 39.7 % (33.0-51.0); Hemoglobin 13.4 g/dL (11.5-16.0); IMMATURE GRAN ABSOLUTE AUTO 0.02 K/mm3 (0.00-0.10); IMMATURE GRAN PERCENT AUTO 0 % (0-1); LYMPHOCYTES ABSOLUTE AUTO 1.61 K/mm3 (0.84-5.20); LYMPHOCYTES PERCENT AUTO 20 % (21-46); MONOCYTES ABSOLUTE AUTO 0.61 K/mm3 (0.16-1.47); MONOCYTES PERCENT AUTO 8 % (4-13); Mean Corpuscular HGB Conc 33.8 g/dL (31.5-36.5); Mean Corpuscular Volume 81 fL (80-100); NEUTROPHILS ABSOLUTE AUTO 5.49 K/mm3 (1.96-9.15); NEUTROPHILS PERCENT AUTO 69 % (41-73); NRBC ABSOLUTE 0.00 K/mm3 (0.00-0.02); NRBC Auto 0.0 /100 WBC (0.0-0.2); Platelet Count 372 K/mm3 (150-400); RDW Coefficient Variation 13.7 % (11.7-14.2); RDW Standard Deviation 40.0 fL (35.1-46.3)
[2025-03-18 08:42] LABS: Alanine Aminotransfer (ALT/SGP 26.0 U/L (12-78); Albumin, Blood 3.3 g/dL (3.4-5.0); Albumin/Globulin Ratio 0.7 (0.8-1.8); Anion Gap 11.0 mmol/L (3-11); Aspartate Aminotrans (AST/SGOT 17.0 U/L (12-37); Bilirubin, Total 0.3 mg/dL (0.1-1.0); Blood Urea Nitrogen 30.0 mg/dL (8-24); CO2, Blood 22.0 mmol/L (21-32); Calcium, Blood 8.9 mg/dL (8.5-10.1); Chloride, Blood 104.0 mmol/L (98-108); Creatinine, Blood 1.58 mg/dL (0.40-1.00); Globulin, Blood 4.6 g/dL (2.2-4.0); Glucose, Blood 150.0 mg/dL (70-99); Potassium, Blood 4.3 mmol/L (3.5-5.5); Sodium, Blood 133.0 mmol/L (136-145); Total Protein, Blood 7.9 g/dL (6.4-8.2)
[2025-03-18 10:00] VITALS: BP 132/63
[2025-03-18] MEDS ORDERED: ONDA4ODT MM (10:58)
[2025-03-18] MEDS ORDERED: Ondansetron 4 MG SoluTab SL ONE (11:00)
== END 2025-03-18 11:41 | disposition home or self-care (01) ==
LOC: ER 07:55
PROVIDERS: Emergency Medicine
DX: E86.0 Dehydration (principal); K83.9 Disease of biliary tract, unspecified; Z88.8 Allergy status to other drugs, medicaments and biological substances; R19.7 Diarrhea, unspecified; E11.22 Type 2 diabetes mellitus with diabetic chronic kidney disease; N18.9 Chronic kidney disease, unspecified; I13.0 Hypertensive heart and chronic kidney disease with heart failure and stage 1 through stage 4 chronic kidney disease, or unspecified chronic kidney disease; Z87.891 Personal history of nicotine dependence
CPT/HCPCS: 80053; 83690; 85025; 96361; 96374; 96375; 99284-25; A9270; J2270; J2405; J7030; J7507

== ENCOUNTER 2025-04-03 02:37 | Emergency (ER) | payer MEDICARE, OTHER ==
[~2025-04-03] VITALS: Ht 170.2 cm; Wt 67.1 kg
[~2025-04-03 02:37] MED LIST changes: +ONDA4ODT MM
[2025-04-03 06:29] VITALS: BP 151/68
== END 2025-04-03 06:44 | disposition home or self-care (01) ==
LOC: ER 02:37
DX: I13.0 Hypertensive heart and chronic kidney disease with heart failure and stage 1 through stage 4 chronic kidney disease, or unspecified chronic kidney disease (principal); E11.22 Type 2 diabetes mellitus with diabetic chronic kidney disease; N18.2 Chronic kidney disease, stage 2 (mild); I50.9 Heart failure, unspecified; Z87.891 Personal history of nicotine dependence
CPT/HCPCS: 93005; 93010; 99283-25

== ENCOUNTER 2025-04-22 14:33 | Emergency (ER) | payer MEDICARE, OTHER ==
[~2025-04-22] VITALS: Ht 162.6 cm; Wt 49.9 kg
[2025-04-22 14:52] LABS: BASOPHILS ABSOLUTE AUTO 0.07 K/mm3 (0.00-0.23); BASOPHILS PERCENT AUTO 1 % (0-2); EOSINOPHILS ABSOLUTE AUTO 0.36 K/mm3 (0.00-0.68); EOSINOPHILS PERCENT AUTO 5 % (0-6); Hematocrit 36.9 % (33.0-51.0); Hemoglobin 12.0 g/dL (11.5-16.0); IMMATURE GRAN ABSOLUTE AUTO 0.02 K/mm3 (0.00-0.10); IMMATURE GRAN PERCENT AUTO 0 % (0-1); LYMPHOCYTES ABSOLUTE AUTO 2.41 K/mm3 (0.84-5.20); LYMPHOCYTES PERCENT AUTO 31 % (21-46); MONOCYTES ABSOLUTE AUTO 0.77 K/mm3 (0.16-1.47); MONOCYTES PERCENT AUTO 10 % (4-13); Mean Corpuscular HGB Conc 32.5 g/dL (31.5-36.5); Mean Corpuscular Volume 84 fL (80-100); NEUTROPHILS ABSOLUTE AUTO 4.25 K/mm3 (1.96-9.15); NEUTROPHILS PERCENT AUTO 54 % (41-73); NRBC ABSOLUTE 0.00 K/mm3 (0.00-0.02); NRBC Auto 0.0 /100 WBC (0.0-0.2); Platelet Count 247 K/mm3 (150-400); RDW Coefficient Variation 14.2 % (11.7-14.2); RDW Standard Deviation 43.9 fL (35.1-46.3)
[2025-04-22 15:14] LABS: Alanine Aminotransfer (ALT/SGP 29.0 U/L (12-78); Albumin, Blood 3.4 g/dL (3.4-5.0); Albumin/Globulin Ratio 0.9 (0.8-1.8); Anion Gap 9.0 mmol/L (3-11); Aspartate Aminotrans (AST/SGOT 26.0 U/L (12-37); Bilirubin, Total 0.6 mg/dL (0.1-1.0); Blood Urea Nitrogen 24.0 mg/dL (8-24); CO2, Blood 22.0 mmol/L (21-32); Calcium, Blood 8.5 mg/dL (8.5-10.1); Chloride, Blood 107.0 mmol/L (98-108); Creatinine, Blood 1.04 mg/dL (0.40-1.00); Globulin, Blood 3.8 g/dL (2.2-4.0); Glucose, Blood 194.0 mg/dL (70-99); Potassium, Blood 4.2 mmol/L (3.5-5.5); Sodium, Blood 134.0 mmol/L (136-145); Total Protein, Blood 7.2 g/dL (6.4-8.2)
[2025-04-22] MEDS ORDERED: HYDROmorphone HCl/Pf 1MG SYR IV ONE ×2 (16:10→20:00)
[2025-04-22 16:58] LABS: Source, Urine Clean Catch
[2025-04-22 17:20] LABS: Bilirubin, Urine Neg (Neg); Color, Urine Yellow (P-Yellow); Glucose Qualitative, Urine Neg (Neg); Ketones, Urine Neg (Neg); Leukocyte Esterase, Urine Neg (Neg); Protein, Urine Neg (Neg); Specific Gravity, Urine 1.015 (1.003-1.022); Urobilinogen, Urine NORM (Normal)
[2025-04-22] MEDS ORDERED: NS 1,000 ML IV SCH (19:55)
[2025-04-22 21:30] VITALS: BP 154/71
== END 2025-04-22 21:37 | disposition home or self-care (01) ==
LOC: ER 14:33
PROVIDERS: Emergency Medicine
DX: T85.590A Other mechanical complication of bile duct prosthesis, initial encounter (principal); I13.0 Hypertensive heart and chronic kidney disease with heart failure and stage 1 through stage 4 chronic kidney disease, or unspecified chronic kidney disease; I50.9 Heart failure, unspecified; E11.22 Type 2 diabetes mellitus with diabetic chronic kidney disease; N18.9 Chronic kidney disease, unspecified; Z87.891 Personal history of nicotine dependence; Z79.51 Long term (current) use of inhaled steroids; Z79.899 Other long term (current) drug therapy; Z88.8 Allergy status to other drugs, medicaments and biological substances; Z88.1 Allergy status to other antibiotic agents
CPT/HCPCS: 74177; 76700; 80053; 81003; 83690; 85025; 96361; 96374-59; 96376; 99284-25; J1171; J7030; Q9967

== ENCOUNTER 2025-04-27 23:16 | Emergency (ER) | payer MEDICARE, OTHER ==
[~2025-04-27] VITALS: Ht 170.2 cm; Wt 64.4 kg
[2025-04-27] MEDS ORDERED: Morphine Sulfate 4 MG/1 ML Injection IV ONE (23:50)
[2025-04-27 23:51] LABS: BASOPHILS ABSOLUTE AUTO 0.03 K/mm3 (0.00-0.23); BASOPHILS PERCENT AUTO 0 % (0-2); EOSINOPHILS ABSOLUTE AUTO 0.09 K/mm3 (0.00-0.68); EOSINOPHILS PERCENT AUTO 1 % (0-6); Hematocrit 34.1 % (33.0-51.0); Hemoglobin 11.4 g/dL (11.5-16.0); IMMATURE GRAN ABSOLUTE AUTO 0.03 K/mm3 (0.00-0.10); IMMATURE GRAN PERCENT AUTO 0 % (0-1); LYMPHOCYTES ABSOLUTE AUTO 1.38 K/mm3 (0.84-5.20); LYMPHOCYTES PERCENT AUTO 15 % (21-46); MONOCYTES ABSOLUTE AUTO 0.89 K/mm3 (0.16-1.47); MONOCYTES PERCENT AUTO 10 % (4-13); Mean Corpuscular HGB Conc 33.4 g/dL (31.5-36.5); Mean Corpuscular Volume 81 fL (80-100); NEUTROPHILS ABSOLUTE AUTO 6.55 K/mm3 (1.96-9.15); NEUTROPHILS PERCENT AUTO 73 % (41-73); NRBC ABSOLUTE 0.00 K/mm3 (0.00-0.02); NRBC Auto 0.0 /100 WBC (0.0-0.2); Platelet Count 267 K/mm3 (150-400); RDW Coefficient Variation 14.2 % (11.7-14.2); RDW Standard Deviation 42.2 fL (35.1-46.3)
[2025-04-28 00:09] LABS: Alanine Aminotransfer (ALT/SGP 21.0 U/L (12-78); Albumin, Blood 3.2 g/dL (3.4-5.0); Albumin/Globulin Ratio 0.7 (0.8-1.8); Anion Gap 9.0 mmol/L (3-11); Aspartate Aminotrans (AST/SGOT 18.0 U/L (12-37); Bilirubin, Total 0.6 mg/dL (0.1-1.0); Blood Urea Nitrogen 22.0 mg/dL (8-24); CO2, Blood 22.0 mmol/L (21-32); Calcium, Blood 8.9 mg/dL (8.5-10.1); Chloride, Blood 105.0 mmol/L (98-108); Creatinine, Blood 1.18 mg/dL (0.40-1.00); Globulin, Blood 4.3 g/dL (2.2-4.0); Glucose, Blood 174.0 mg/dL (70-99); Magnesium, Blood 2.0 mg/dL (1.6-2.4); Potassium, Blood 3.7 mmol/L (3.5-5.5); Sodium, Blood 132.0 mmol/L (136-145); Total Protein, Blood 7.5 g/dL (6.4-8.2)
[2025-04-28 01:08] LABS: Influenza A, PCR NEGATIVE (NEGATIVE); Influenza B, PCR NEGATIVE (NEGATIVE); Resp Syncytial Virus, PCR NEGATIVE (NEGATIVE); SARS-Cov-2 (COVID-19) PCR, MMC NEGATIVE (NEGATIVE)
[2025-04-28] MEDS ORDERED: Morphine Sulfate 4 MG/1 ML Injection IV ONE (01:40)
[2025-04-28 02:30] LABS: Source, Urine Clean Catch
[2025-04-28 02:35] LABS: Bilirubin, Urine Neg (Neg); Glucose Qualitative, Urine Neg (Neg); Ketones, Urine Neg (Neg); Leukocyte Esterase, Urine Neg (Neg); Protein, Urine 1+ (Neg); Specific Gravity, Urine 1.010 (1.003-1.022); Urobilinogen, Urine NORM (Normal)
[2025-04-28 02:46] LABS: Color, Urine Pale Yellow (P-Yellow)
[2025-04-28 02:48] LABS: Red Blood Cells, Urine 0-2 /hpf (0-2); White Blood Cells, Urine 0-2 /hpf (0-5)
[2025-04-28 04:00] VITALS: BP 156/70
[2025-04-29] MEDS ORDERED: Kristalose20 GM PO (23:23)
== END 2025-04-28 04:06 | disposition home or self-care (01) ==
LOC: ER 23:16
PROVIDERS: Student in an Organized Health Care Education/Training Program
DX: R50.9 Fever, unspecified (principal); R10.9 Unspecified abdominal pain; G89.29 Other chronic pain; I13.0 Hypertensive heart and chronic kidney disease with heart failure and stage 1 through stage 4 chronic kidney disease, or unspecified chronic kidney disease; E11.22 Type 2 diabetes mellitus with diabetic chronic kidney disease; N18.9 Chronic kidney disease, unspecified; I50.9 Heart failure, unspecified; Z48.03 Encounter for change or removal of drains; Z87.891 Personal history of nicotine dependence; Z79.51 Long term (current) use of inhaled steroids; Z79.899 Other long term (current) drug therapy; Z88.1 Allergy status to other antibiotic agents; Z88.8 Allergy status to other drugs, medicaments and biological substances
CPT/HCPCS: 71045; 74177; 80053; 81001; 82140; 83605; 83690; 83735; 85025; 87637; 96374-59; 96376; 99285-25; J2270; Q9967

== ENCOUNTER 2025-04-29 20:44 | Emergency (ER) | payer MEDICARE ==
[~2025-04-29] VITALS: Ht 170.2 cm; Wt 64.9 kg
[2025-04-29 22:08] LABS: Alanine Aminotransfer (ALT/SGP 28.0 U/L (12-78); Albumin, Blood 3.4 g/dL (3.4-5.0); Albumin/Globulin Ratio 0.8 (0.8-1.8); Anion Gap 10.0 mmol/L (3-11); Aspartate Aminotrans (AST/SGOT 40.0 U/L (12-37); Bilirubin, Total 0.7 mg/dL (0.1-1.0); Blood Urea Nitrogen 20.0 mg/dL (8-24); CO2, Blood 25.0 mmol/L (21-32); Calcium, Blood 9.1 mg/dL (8.5-10.1); Chloride, Blood 104.0 mmol/L (98-108); Creatinine, Blood 1.83 mg/dL (0.40-1.00); Globulin, Blood 4.4 g/dL (2.2-4.0); Glucose, Blood 139.0 mg/dL (70-99); Potassium, Blood 4.6 mmol/L (3.5-5.5); Sodium, Blood 134.0 mmol/L (136-145); Total Protein, Blood 7.8 g/dL (6.4-8.2)
[2025-04-29 22:23] LABS: BASOPHILS ABSOLUTE AUTO 0.04 K/mm3 (0.00-0.23); BASOPHILS PERCENT AUTO 1 % (0-2); EOSINOPHILS ABSOLUTE AUTO 0.18 K/mm3 (0.00-0.68); EOSINOPHILS PERCENT AUTO 2 % (0-6); Hematocrit 35.4 % (33.0-51.0); Hemoglobin 11.5 g/dL (11.5-16.0); IMMATURE GRAN ABSOLUTE AUTO 0.01 K/mm3 (0.00-0.10); IMMATURE GRAN PERCENT AUTO 0 % (0-1); LYMPHOCYTES ABSOLUTE AUTO 1.72 K/mm3 (0.84-5.20); LYMPHOCYTES PERCENT AUTO 22 % (21-46); MONOCYTES ABSOLUTE AUTO 0.75 K/mm3 (0.16-1.47); MONOCYTES PERCENT AUTO 10 % (4-13); Mean Corpuscular HGB Conc 32.5 g/dL (31.5-36.5); Mean Corpuscular Volume 83 fL (80-100); NEUTROPHILS ABSOLUTE AUTO 5.16 K/mm3 (1.96-9.15); NEUTROPHILS PERCENT AUTO 66 % (41-73); NRBC ABSOLUTE 0.00 K/mm3 (0.00-0.02); NRBC Auto 0.0 /100 WBC (0.0-0.2); Platelet Count 271 K/mm3 (150-400); RDW Coefficient Variation 14.1 % (11.7-14.2); RDW Standard Deviation 42.6 fL (35.1-46.3)
[2025-04-29] MEDS ORDERED: Kristalose20 GM PO (23:23)
[2025-04-29 23:43] VITALS: BP 148/71
== END 2025-04-29 23:48 | disposition home or self-care (01) ==
LOC: ER 20:44
PROVIDERS: Emergency Medicine
DX: E72.20 Disorder of urea cycle metabolism, unspecified (principal); I13.0 Hypertensive heart and chronic kidney disease with heart failure and stage 1 through stage 4 chronic kidney disease, or unspecified chronic kidney disease; E11.22 Type 2 diabetes mellitus with diabetic chronic kidney disease; N18.9 Chronic kidney disease, unspecified; I50.9 Heart failure, unspecified; Z88.1 Allergy status to other antibiotic agents; Z88.8 Allergy status to other drugs, medicaments and biological substances; Z91.014 Allergy to mammalian meats; Z87.891 Personal history of nicotine dependence
CPT/HCPCS: 80053; 82140; 85025; 99284; A9270